=== PATIENT | male | born 1945 | race Caucasian/White ===

== ENCOUNTER → 2017-07-23 | Outpatient (CLI) | payer MEDICARE ==
[2017-07-19 11:07] LABS: BASOPHILS # (AUTO) 0.1 (0.0-0.1); BASOPHILS % 1.1 % (0.0-1.0); EOSINOPHILS # (AUTO) 0.2 (0.0-0.4); EOSINOPHILS % 2.9 % (0.0-6.0); HEMATOCRIT 35.7 % (38.2-49.6); HEMOGLOBIN 12.4 g/dL (14.0-18.0); LYMPHOCYTES # (AUTO) 1.8 (1.0-3.2); LYMPHOCYTES % 27.8 % (18.0-39.1); MEAN CORPUSCULAR HEMOGLOBIN 29.5 pg (28-32); MEAN CORPUSCULAR HGB CONC 34.7 g/dL (31-35); MEAN CORPUSCULAR VOLUME 84.8 fL (81-99); MONOCYTES # (AUTO) 0.4 (0.2-0.8); MONOCYTES % 6.2 % (4.4-11.3); NEUTROPHILS % 61.7 % (38.7-80.0); PLATELET COUNT 224 x10e3/uL (140-360); RED BLOOD COUNT 4.21 x10e6/uL (4.3-5.7); RED CELL DISTRIBUTION WIDTH 13.5 % (11.7-14.4)
[2017-07-19 11:17] LABS: INR 0.94
[2017-07-19 11:26] LABS: ALBUMIN 3.7 g/dL (3.5-5.0); ANION GAP 13.5 mmol/L (8-16); CALCIUM 9.6 mg/dL (8.4-10.2); CHOL/HDL RATIO 5.4 (3.9-4.7); CREATININE, SERUM 2.31 mg/dL (0.72-1.25); POTASSIUM 3.5 mmol/L (3.5-5.1)
[~2017-07-23] VITALS: Ht 182.9 cm; Wt 97.5 kg
[~2017-07-23] MED LIST: CARVEDILOL3.125 MG PO; DIOVAN HCT 3201 EACH PEG; FLONASE NS; HEPARIN SOD/SOD CHLORIDE 2,000 ML ONE; IOPAMIDOL 370 MG/ML 200 ML INFUS..BTL INJ ONE; LEVOCETIRIZINE D5 MG PO; LIDOCAINE HCL 2% LOCAL 20 ML VIAL ONE; LISINOPRIL; MAGNESIUM CARBONATE PO; PANTOPRAZOLE SO40 MG PO; RAPAFLO8 MG PO; SODIUM CHLORIDE 0.9% 1000ML 1,000 ML ONE; SUCRALFATE1 GM PO; TYLENOL # 31 EA; Z.0.DEXILANT60 MG PO; Z.0.PANTOPRAZOLE SO4; Z.0.PLAVIX75 MG PO; Z.0.PRAVASTATIN SOD4 PO; [UNRECOGNIZED DRUG - OTHER] PO
[2017-07-23 08:21] VITALS: BP 148/77
== END ==
LOC: CATH LAB 07:51 → LAB 07:51 → EDSTATUS 09:00
PROVIDERS: ATTEND Internal Medicine Interventional Cardiology
DX: Z01.818 Encounter for other preprocedural examination (principal); I20.8 Other forms of angina pectoris; Z53.8 Procedure and treatment not carried out for other reasons
CPT/HCPCS: 36415; 80053; 80061; 85025; 85610; J2001; J7030; Q9967

== ENCOUNTER → 2017-07-25 | Outpatient (CLI) | payer MEDICARE ==
[~2017-07-25] MED LIST changes: -HEPARIN SOD/SOD CHLORIDE 2,000 ML ONE; -IOPAMIDOL 370 MG/ML 200 ML INFUS..BTL INJ ONE; -LIDOCAINE HCL 2% LOCAL 20 ML VIAL ONE; -SODIUM CHLORIDE 0.9% 1000ML 1,000 ML ONE
--- NOTE | 2017-07-25 10:53 | Diagnostic Imaging Report ---
PROCEDURE:US RETROPERITONEAL ( KIDNEY ). COMPARISON:02/08/2016. INDICATIONS:Malignant Neoplasm Of Kidney TECHNIQUE: Arboleda-scale and color sonographic images of the bilateral kidneys and bladder where obtained in transverse and longitudinal planes. FINDINGS: RIGHT KIDNEY: Status post right nephrectomy. No abnormal soft tissue in the right renal fossa. LEFT KIDNEY: 13.4 cm, cortex 2.3 cm Cysts: None Solid masses: None Stones: None Hydronephrosis: Moderate hydronephrosis. Echogenicity: Normal renal cortical echogenicity. Bladder: Distended with a lobular contour, unchanged. Left ureteral jet is identified. Prostate: Enlarged, measuring 5.4 x 5.5 x 5.8 cm. Estimated volume 90 cc CONCLUSION: Interval development of moderate left hydronephrosis, without discrete obstructive lesion identified. CT abdomen and pelvis without contrast may be of benefit for further evaluation. Prostatomegaly. Status post right nephrectomy. Dictated by: Yazan Toussaint M.D. on 07/25/2017 at 11:01 Electronically approved by: Yazan Toussaint M.D. on 07/25/2017 at 11:01
== END ==
LOC: US 09:57
PROVIDERS: ATTEND Urology
DX: C64.9 Malignant neoplasm of unspecified kidney, except renal pelvis (principal)
CPT/HCPCS: 76770

== ENCOUNTER → 2017-11-15 | Day surgery (SDC) | payer MEDICARE ==
[2017-11-14 11:45] LABS: BASOPHILS # (AUTO) 0.1 (0.0-0.1); BASOPHILS % 0.8 % (0.0-1.0); EOSINOPHILS # (AUTO) 0.2 (0.0-0.4); EOSINOPHILS % 2.7 % (0.0-6.0); LYMPHOCYTES # (AUTO) 1.7 (1.0-3.2); LYMPHOCYTES % 25.2 % (18.0-39.1); MEAN CORPUSCULAR HEMOGLOBIN 28.8 pg (28-32); MEAN CORPUSCULAR HGB CONC 34.4 g/dL (31-35); MEAN CORPUSCULAR VOLUME 83.8 fL (81-99); MONOCYTES # (AUTO) 0.5 (0.2-0.8); MONOCYTES % 7.6 % (4.4-11.3); NEUTROPHILS # (AUTO) 4.2 (2.1-6.9); NEUTROPHILS % 63.4 % (38.7-80.0); PLATELET COUNT 232 x10e3/uL (140-360); RED BLOOD COUNT 3.82 x10e6/uL (4.3-5.7); RED CELL DISTRIBUTION WIDTH 13.9 % (11.7-14.4)
[2017-11-14 12:00] LABS: ALBUMIN 3.9 g/dL (3.5-5.0); ALBUMIN/GLOBULIN RATIO 1.1 (0.8-2.0); ANION GAP 12.3 mmol/L (8-16); CALCIUM 9.8 mg/dL (8.4-10.2); CREATININE, SERUM 3.05 mg/dL (0.72-1.25); POTASSIUM 4.3 mmol/L (3.5-5.1)
[~2017-11-15] VITALS: Ht 182.9 cm; Wt 95.3 kg
[~2017-11-15] MED LIST changes: +AMLODIPINE BESYL5 MG PO; +CARVEDILOL12.5 MG PO; +FENTANYL CITRATE/PF 100MCG/2 ML INJ ONE; +HEPARIN SOD/SOD CHLORIDE 2,000 ML ONE; +IOPAMIDOL 300MG/ML 100 ML INFUS..BTL IV ONE; +LIDOCAINE HCL 2% LOCAL 20 ML VIAL ONE; +MIDAZOLAM HCL 2 MG/2 ML VIAL ONE; +SODIUM CHLORIDE 0.9% 1000ML 1,000 ML ONE
--- OUTSIDE RECORDS SUMMARY | 2017-11-15 09:33 | XMS REPORT ---
Author Author [facility] Address Unknown Phone Unavailable Care Team Providers Care Bag Inspector Name Role Phone LUDIVINA THORNTON Unavailable Unavailable Problems This patient has no known problems. Allergies, Adverse Reactions, Alerts This patient has no known allergies or adverse reactions. Medications This patient has no known medications. Results Test Description Test Time Test Comments Text Results Atomic Results Result Comments CHEST 2 VIEWS [place] [address] Patient Name: KALIE HERNANDEZ MR #: [id number] : 1945 Age/Sex: 72/M Req # : [id number] Adm Physician: Ordered by: LUDIVINA THORNTON MD Report #: [id number] Location: OR Room/Bed: Procedure: [id number] DX/CHEST 2 VIEWS Exam Date: Exam Time: REPORT STATUS: Signed PROCEDURE: X-RAY CHEST, TWO VIEWS COMPARISON: 2015. INDICATIONS: PREOPERATIVE CHEST XRAY FOR BIOPSY FINDINGS: Lungs are well-inflated. No focal airspace consolidation, pleural effusion, or pneumothorax. Cardiomediastinal contour and pulmonary vasculature are stable and within normal limits. No acute osseous abnormality. Multilevel degenerative disc changes of the thoracic spine.. CONCLUSION: No acute cardiopulmonary abnormality. Dictated by: Lucretia Jean M.D. on 11/04/2017 at 12:57 Electronically approved by: Lucretia Jean M.D. on at 12:57 Dictated By: LUCRETIA JEAN MD [id number] Transcribed By: JOSE MARIA on 11/04/17 1257 COPY TO: LUDIVINA THORNTON MD US RENAL RETROPERITONEAL COMP [place] [address] Patient Name: KALIE HERNANDEZ MR #: [id number] : 1945 Age/Sex: 72/M Req #: [id number] Adm Physician: Ordered by: LUDIVINA THORNTON MD Report #: [id number] Location: Room/Bed: Procedure: [id number] US/US RENAL RETROPERITONEAL COMP Exam Date: Exam Time: REPORT STATUS: Signed PROCEDURE: US RETROPERITONEAL ( KIDNEY ). COMPARISON: 02/08/2016. INDICATIONS: Malignant Neoplasm Of Kidney TECHNIQUE: Arboleda-scale and color sonographic images of the bilateral kidneys and bladder where obtained in transverse and longitudinal planes. FINDINGS: RIGHT KIDNEY: Status post right nephrectomy. No abnormal soft tissue in the right renal fossa. LEFT KIDNEY: 13.4 cm, cortex 2.3 cm Cysts: None Solid masses: None Stones : None Hydronephrosis: Moderate hydronephrosis. Echogenicity: Normal renal cortical echogenicity. Bladder: Distended with a lobular contour, unchanged. Left ureteral jet is identified. Prostate: Enlarged, measuring 5.4 x 5.5 x 5.8 cm. Estimated volume 90 cc CONCLUSION: Interval development of moderate left hydronephrosis, without discrete obstructive lesion identified. CT abdomen and pelvis without contrast may be of benefit for further evaluation. Prostatomegaly. Status post right nephrectomy. Dictated by: Lucretia Jean M.D. on 07/25/2017 at 11:01 Electronically approved by: Lucretia Jean M.D. on 07/25/2017 at 11:01 Dictated By: LUCRETIA JEAN MD 1101 Transcribed By: JOSE MARIA on 07/25/17 1101 COPY TO : LUDIVINA THORNTON MD
--- NOTE | 2017-11-15 14:24 | Operative Report ---
DATE OF PROCEDURE: November 15, 2017 INDICATIONS: Coronary artery disease and unstable angina. PROCEDURES PERFORMED 1. Left heart catheterization. 2. Selective coronary angiography. 3. Deployment of right groin Perclose. COMPLICATIONS: None. RECOMMENDATIONS: Medical therapy. Patient is cleared for urological surgery once and if renal function improves consider circumflex intervention. Right groin was anesthetized using lidocaine. A 6-Beninese sheath was placed. Coronary angiography demonstrate 50% to 60% distal left main stenosis. Stent in the left anterior descending artery was patent. This is a small vessel. Circumflex was a small vessel, 70% stenosis in midcircumflex. Right coronary artery was dominant with a large stent in its midportion with mild in-stent restenosis 10% to 20%. Distal left anterior descending artery with diffuse 30% to 50% stenosis. Right groin repaired using Perclose. Patient discharged home same day. Total contrast used 25 mL. Job#: [id number] JESSICA
[2017-11-15 14:30] VITALS: BP 155/78
[2017-11-15 14:45] VITALS: BP 152/79
[2017-11-15 15:00] VITALS: BP 162/84
[2017-11-15 15:15] VITALS: BP 158/79
== END | disposition home or self-care (01) ==
LOC: CATH LAB 09:31 → EDSTATUS 13:00
PROVIDERS: ATTEND Internal Medicine Interventional Cardiology
DX: I25.110 Atherosclerotic heart disease of native coronary artery with unstable angina pectoris (principal); Z95.5 Presence of coronary angioplasty implant and graft; T82.855A Stenosis of coronary artery stent, initial encounter; Y83.2 Surgical operation with anastomosis, bypass or graft as the cause of abnormal reaction of the patient, or of later complication, without mention of misadventure at the time of the procedure; R94.39 Abnormal result of other cardiovascular function study; G47.33 Obstructive sleep apnea (adult) (pediatric); Z85.528 Personal history of other malignant neoplasm of kidney; Z90.5 Acquired absence of kidney; Z88.1 Allergy status to other antibiotic agents
CPT/HCPCS: 36415; 77002; 80053; 85025; 93458; C1725; J2001; J2250; J7030; Q9967; 36140

== ENCOUNTER → 2017-12-17 | Day surgery (SDC) | payer MEDICARE ==
[~2017-12-17] MED LIST changes: +BELLADONNA/OPIUM 60 MG SUPP PR ONE; +CEFAZOLIN SOD 1 GM VIAL ONE; +DEXAMETHASONE SOD PHOS INJ 4 MG/ML VIAL ONE; -HEPARIN SOD/SOD CHLORIDE 2,000 ML ONE; -IOPAMIDOL 300MG/ML 100 ML INFUS..BTL IV ONE; +IOPAMIDOL 610MG/1ML 300 MG/ML VIAL IV ONE; -LIDOCAINE HCL 2% LOCAL 20 ML VIAL ONE; +LIDOCAINE HCL 2% LOCAL INJ 5 ML SDV VIAL INJ ONE; +ONDANSETRON HCL INJ 2 MG/ML VIAL ONE; +PROPOFOL IV EMULSION 10 MG/ML 20 ML VIAL ONE; +SEVOFLURANE INHAL SOLN 250 ML PEN BTL ONE; -SODIUM CHLORIDE 0.9% 1000ML 1,000 ML ONE; +TOBRAMYCIN 40 MG/ML 2ML VIAL ONE
--- NOTE | 2017-12-17 19:39 | Operative Report ---
DATE OF PROCEDURE: December 17, 2017 PREOPERATIVE DIAGNOSES 1. Elevated prostatic specific antigen. 2. Solitary left kidney. 3. Renal failure. 4. Urethral stricture. POSTOPERATIVE DIAGNOSIS: Left hydronephrosis and hydroureter. OPERATIONS PERFORMED 1. Cystoscopy and urethral dilation. 2. Left retrograde pyelogram. 3. Right retrograde ureterogram. 4. Placement of double J-stent, 7-Anguillan, 26 cm long to the left side. 5. Interpretation of x-ray. Radiologist not present. 6. Supervision of fluoroscopy. Radiologist not present. 7. Ultrasound of the prostate. 8. Ultrasound-guided needle biopsy of the prostate. IT CONSULTANT: None. ANESTHESIA: General. CLINICAL INDICATION NOTE: This is a 72-year-old patient that had right nephrectomy for cancer in the past. He does have a urethral stricture, renal failure and elevated PSA. He was brought here for assessment of the lower and upper tract and biopsy of the prostate. Procedure was discussed. Patient was advised of potential benefit and complications and accepted. DESCRIPTION OF PROCEDURE AND FINDINGS: After a proper level of anesthesia was achieved, the patient was placed in lithotomy position and prepped and draped in the usual sterile fashion. The distal urethra is narrow and dilated to 28-Anguillan. Following this, cystoscopy was done. A very large blocking prostate is present. The bladder itself is extensively trabeculated. There is a bladder diverticulum on the left side. Both ureteral orifices were identified. Left retrograde pyelogram was done demonstrating configurated ureter with significant hydronephrosis. It was possible to negotiate a wire up into the renal pelvis, and a double J-stent was placed, 7-Anguillan, 26 cm long. Right retrograde ureterogram was done. The ureter is unremarkable. No tumors are present. It is free up to the transection where the nephrectomy was done. The bladder was then fill up with irrigation fluid. The prostate ultrasound was done after irrigating of the rectum with diluted Betadine solution. Prostate was found to be about 100 g. Ultrasound-guided biopsy of the prostate was done. Six coils were obtained from each side, 3 at the base, 3 at the apex and 3 in the middle. A Walker catheter, 22-Anguillan, 30 mL was placed in the bladder. Patient was transferred in satisfactory condition to the recovery postop. Antibiotics and pain pills were given. He will be followed in 2 weeks in the office. Walker should be removed in about 5 day. Job#: [id number] RI
== END | disposition home or self-care (01) ==
LOC: OR 07:42
PROVIDERS: ATTEND Urology
DX: R97.20 Elevated prostate specific antigen [PSA] (principal); N13.30 Unspecified hydronephrosis; N41.0 Acute prostatitis; N41.1 Chronic prostatitis; N19 Unspecified kidney failure; N35.9 Urethral stricture, unspecified; N32.89 Other specified disorders of bladder; Z90.5 Acquired absence of kidney; Z85.528 Personal history of other malignant neoplasm of kidney; K21.9 Gastro-esophageal reflux disease without esophagitis; K44.9 Diaphragmatic hernia without obstruction or gangrene; I69.898 Other sequelae of other cerebrovascular disease; R53.1 Weakness; G47.33 Obstructive sleep apnea (adult) (pediatric); I25.10 Atherosclerotic heart disease of native coronary artery without angina pectoris; I10 Essential (primary) hypertension; E78.5 Hyperlipidemia, unspecified; Z85.828 Personal history of other malignant neoplasm of skin; Z95.5 Presence of coronary angioplasty implant and graft
CPT/HCPCS: 52332; 55700; 74420; 76872; 76942; 88305; C2617; J1100; J2001; J2250; J2405; J3260; Q9967; J0690

== ENCOUNTER 2017-12-31 19:58 | Inpatient (IN) | payer MEDICARE ==
[~2017-12-31] VITALS: Ht 183.6 cm; Wt 95.7 kg
[~2017-12-31 19:58] MED LIST changes: -BELLADONNA/OPIUM 60 MG SUPP PR ONE; -CEFAZOLIN SOD 1 GM VIAL ONE; -DEXAMETHASONE SOD PHOS INJ 4 MG/ML VIAL ONE; -FENTANYL CITRATE/PF 100MCG/2 ML INJ ONE; -IOPAMIDOL 610MG/1ML 300 MG/ML VIAL IV ONE; -LIDOCAINE HCL 2% LOCAL INJ 5 ML SDV VIAL INJ ONE; -MIDAZOLAM HCL 2 MG/2 ML VIAL ONE; -ONDANSETRON HCL INJ 2 MG/ML VIAL ONE; -PROPOFOL IV EMULSION 10 MG/ML 20 ML VIAL ONE; -SEVOFLURANE INHAL SOLN 250 ML PEN BTL ONE; -TOBRAMYCIN 40 MG/ML 2ML VIAL ONE
[2017-12-31 21:06] LABS: BASOPHILS # (AUTO) 0.1 (0.0-0.1); BASOPHILS % 0.9 % (0.0-1.0); EOSINOPHILS # (AUTO) 0.3 (0.0-0.4); EOSINOPHILS % 3.1 % (0.0-6.0); HEMATOCRIT 29.4 % (38.2-49.6); HEMOGLOBIN 10.3 g/dL (14.0-18.0); LYMPHOCYTES # (AUTO) 1.3 (1.0-3.2); LYMPHOCYTES % 14.6 % (18.0-39.1); MEAN CORPUSCULAR HEMOGLOBIN 28.1 pg (28-32); MEAN CORPUSCULAR VOLUME 80.1 fL (81-99); MONOCYTES # (AUTO) 0.7 (0.2-0.8); MONOCYTES % 7.9 % (4.4-11.3); NEUTROPHILS # (AUTO) 6.7 (2.1-6.9); NEUTROPHILS % 73.2 % (38.7-80.0); PLATELET COUNT 298 x10e3/uL (140-360); RED BLOOD COUNT 3.67 x10e6/uL (4.3-5.7); RED CELL DISTRIBUTION WIDTH 13.2 % (11.7-14.4)
[2017-12-31 21:14] LABS: INR 1.08; PROTHROMBIN TIME 13.2 seconds (11.9-14.5)
[2017-12-31 21:15] LABS: PARTIAL THROMBOPLASTIN TIME 35.7 seconds (23.8-35.5)
[2017-12-31 21:22] LABS: ALBUMIN 3.7 g/dL (3.5-5.0); ALBUMIN/GLOBULIN RATIO 1.1 (0.8-2.0); ANION GAP 14.9 mmol/L (8-16); CALCIUM 9.1 mg/dL (8.4-10.2); CREATININE, SERUM 3.8 mg/dL (0.72-1.25); MAGNESIUM 2.2 MG/DL (1.3-2.1); POTASSIUM 3.9 mmol/L (3.5-5.1)
[2017-12-31 21:29] LABS: CREATINE KINASE MB 4.3 ng/mL (0-5.0)
[2017-12-31] MEDS ORDERED: LIDOCAINE JELLY 2% 10ML URO-JET TOP ONE (21:30)
[2017-12-31 22:17] LABS: CLARITY,URINE SL CLOUDY (CLEAR); COLOR,URINE STRAW (YELLOW)
--- NOTE | 2017-12-31 22:17 | Diagnostic Imaging Report ---
EXAM: CT ABDOMEN AND PELVIS without IV CONTRAST INDICATION: Unable to urinate COMPARISON: None TECHNIQUE: The abdomen and pelvis were scanned using a multidetector helical scanner. Coronal and sagittal reformations were obtained. Renal stone protocol performed. IV Contrast: None Oral Contrast: None CTDIvol has been reviewed. It is below the limits set by the Radiation Protocol Committee (RPC). FINDINGS: LOWER THORAX: No consolidations LIVER: No masses BILIARY: Normal gallbladder. No ductal dilation. SPLEEN: No masses PANCREAS: No masses ADRENALS: No nodules RIGHT KIDNEY: Surgical changes of nephrectomy. No masses in the nephrectomy bed. LEFT KIDNEY: There is an internal nephroureteral stent which is malpositioned with its proximal end reconstituted in the mid ureter and its distal end within the bladder. There is severe left hydroureteronephrosis secondary to massive distention of the bladder. No nephroureterolithiasis. Mild left perinephric fat stranding. GI TRACT: No wall thickening or obstruction. Normal appendix. VESSELS: Moderate atherosclerotic changes of the abdominal aorta without aneurysm. PERITONEUM/RETROPERITONEUM: No free air or fluid LYMPH NODES: No lymphadenopathy REPRODUCTIVE ORGANS: Enlargement of the prostate with protrusion into the bladder base. Prostate measures at least 8 cm in transverse diameter. BLADDER: Massive enlargement of the bladder with multiple trabeculations measuring up to 23 x 16 x 13 cm. SOFT TISSUES: Small fat-containing left inguinal hernia. BONES: No suspicious bone lesions. IMPRESSION: 1. Massive distention of the bladder up to 23 cm in diameter likely secondary to enlarged prostate. 2. Severe left hydroureteronephrosis secondary to bladder distention. Additionally, the internal nephroureteral stent is malpositioned with its proximal end in the mid ureter. Signed by: Dr. Karissa Rubin M.D. on 12/31/2017 10:14 PM
[2017-12-31 22:18] LABS: BILIRUBIN,URINE NEGATIVE (NEGATIVE); KETONES,URINE NEGATIVE (NEGATIVE); LEUKOCYTE ESTERASE ,URINE 1+ (NEGATIVE); NITRITE,URINE NEGATIVE (NEGATIVE); PROTEIN,URINE DIPSTICK 2+ (NEGATIVE); URINE UROBILINOGEN 0.2 mg/dL (0.2 - 1)
[2017-12-31 22:20] LABS: RBC,URINE 21-50 /HPF (0-5)
[2017-12-31 22:21] LABS: AMORPHOUS SEDIMENT,URINE MANY (FEW); BACTERIA,URINE FEW /HPF; EPITHELIAL CELLS,URINE FEW /LPF; TRANSITIONAL EPI CELLS,URINE MODERATE
[2017-12-31] MEDS ORDERED: LEVOFLOXACIN 250MG/D5W 50ML 50 ML IV STA (22:35)
[2017-12-31] MEDS ORDERED: MORPHINE SULFATE 2 MG/ML SYR IV PRN (23:00)
[2017-12-31] MEDS ORDERED: ONDANSETRON HCL INJ 2 MG/ML VIAL IV PRN (23:00)
[2018-01-01] VITALS (7 sets, daily range): BP systolic 124–167; BP diastolic 60–77
[2018-01-01] MEDS: SODIUM CHLORIDE 0.9% 1000ML 1,000 ML IV SCH ×2 (01:11→12:12)
[2018-01-01 06:25] LABS: BASOPHILS # (AUTO) 0.1 (0.0-0.1); BASOPHILS % 0.9 % (0.0-1.0); EOSINOPHILS # (AUTO) 0.3 (0.0-0.4); EOSINOPHILS % 3.5 % (0.0-6.0); HEMATOCRIT 27.8 % (38.2-49.6); HEMOGLOBIN 9.6 g/dL (14.0-18.0); LYMPHOCYTES # (AUTO) 1.5 (1.0-3.2); LYMPHOCYTES % 19.8 % (18.0-39.1); MEAN CORPUSCULAR HEMOGLOBIN 28.5 pg (28-32); MEAN CORPUSCULAR HGB CONC 34.5 g/dL (31-35); MEAN CORPUSCULAR VOLUME 82.5 fL (81-99); MONOCYTES # (AUTO) 0.7 (0.2-0.8); MONOCYTES % 8.7 % (4.4-11.3); NEUTROPHILS # (AUTO) 5.1 (2.1-6.9); NEUTROPHILS % 66.6 % (38.7-80.0); PLATELET COUNT 278 x10e3/uL (140-360); RED BLOOD COUNT 3.37 x10e6/uL (4.3-5.7); RED CELL DISTRIBUTION WIDTH 13.3 % (11.7-14.4)
[2018-01-01 06:54] LABS: CREATINE KINASE MB 2.4 ng/mL (0-5.0)
[2018-01-01 06:57] LABS: ALBUMIN 3.1 g/dL (3.5-5.0); ALBUMIN/GLOBULIN RATIO 1.1 (0.8-2.0); ANION GAP 12.9 mmol/L (8-16); CALCIUM 8.9 mg/dL (8.4-10.2); CREATININE, SERUM 3.55 mg/dL (0.72-1.25); POTASSIUM 3.9 mmol/L (3.5-5.1)
[2018-01-01] MEDS: PANTOPRAZOLE 40 MG 10ML VIAL IV SCH (08:35)
--- NOTE | 2018-01-01 09:13 | Diagnostic Imaging Report ---
PROCEDURE:ABDOMEN-1VIEW (KUB) TECHNIQUE:Supine AP abdomen totaling 2 radiographs INDICATION:Stent placement COMPARISON:[facility], CT, CT ABDOMEN/PELVIS WO, 12/31/2017, 21:14. FINDINGS: See conclusion. CONCLUSION: 1. Left double-J ureteral stent without evidence of encrustation or pericatheter stone. The proximal loop of the stent is migrated distally, into the proximal ureter. The distal loop overlies the urinary bladder. 2. Right nephrectomy. 3. Normal bowel gas pattern. Dictated by: Romario Flood M.D. on 01/01/2018 at 9:16 Electronically approved by: Romario Flood M.D. on 01/01/2018 at 9:16
[2018-01-01] MEDS ORDERED: IOPAMIDOL 610MG/1ML 300 MG/ML VIAL IV ONE (13:58)
[2018-01-01] MEDS ORDERED: BELLADONNA/OPIUM 30 MG SUPP RC ONE (14:23)
--- NOTE | 2018-01-01 16:42 | Consultation ---
DATE OF CONSULTATION: January 01, 2018 REQUESTING PHYSICIAN: Dr. Garibay REASON FOR CONSULTATION: Cardiac clearance. HISTORY OF PRESENT ILLNESS: This is a 72-year-old man with history of coronary artery disease with prior LAD and RCA stents and known 70% stenosis of the left circumflex, sleep apnea, venous insufficiency status post venous ablation, hypertension, hyperlipidemia and poorly controlled diabetes who presented with complaints of suprapubic pain and hematuria. The patient reports he had undergone prostate biopsy with ureteral stent placement last Saturday. He reports his Walker was removed at that time. He initially did well however he then began to note decreased urination and hematuria. He presented to the ER for evaluation. In the ER he was found to have acute kidney injury with creatinine of 3.8 as well as massive distention of the bladder and severe large hydroureteronephrosis secondary to bladder distention with a malpositioned nephroureteral stent with its proximal end in the mid ureter on CT abdomen and pelvis. He was admitted for further evaluation and treatment. The patient denies any symptoms. He denies any chest pain, shortness of breath, palpitations, orthopnea, PND, lightheadedness or syncope. REVIEW OF SYSTEMS: Negative except as per HPI. PAST MEDICAL HISTORY 1. Coronary artery disease status post LAD and RCA stents with 70% stenosis in the circumflex. 2. Hypertension. 3. Sleep apnea on CPAP. 4. Venous insufficiency status post ablation. PAST SURGICAL HISTORY 1. Prostate biopsy. 2. Nephrectomy. ALLERGIES: PLEASE SEE EMR. MEDICATIONS: Please see medication list. SOCIAL HISTORY: No tobacco, alcohol or drug use. FAMILY HISTORY: Noncontributory. PHYSICAL EXAMINATION VITAL SIGNS: Temperature 97.3 degrees, pulse 50, respiratory rate 20, blood pressure 140/73, oxygen saturation 98% on room air. GENERAL: Awake, alert. No acute distress. Well-developed, well-nourished man. HEENT: Normocephalic, atraumatic. Pupils equal. No scleral icterus. NECK: Supple. No thyromegaly or cervical lymphadenopathy. No carotid bruits. LUNGS: Clear to auscultation bilaterally. No wheezes or crackles. CARDIOVASCULAR: Normal rate, regular rhythm. No murmur. Normal S1, S2. ABDOMEN: Soft, nontender. EXTREMITIES: No edema. NEURO: Nonfocal exam. LABS: Sodium 141, potassium 3.9, chloride 109, CO2 23, BUN 45, creatinine 3.55. WBC 7.7, hemoglobin 9.6, hematocrit 27.8, platelets 278. EKG: Second-degree AV block type 1. IMPRESSION 1. Urinary retention with severe left hydroureteronephrosis and malpositioned left nephroureteral stent. 2. Abnormal urinalysis. 3. Second-degree type 1 AV block. 4. Coronary artery disease status post RCA and LAD stents with 70% stenosis in the circumflex. 5. Hypertension. 6. Sleep apnea. RECOMMENDATIONS: Patient may proceed to cystoscope without further cardiac evaluation. Please monitor patient on telemetry. Increase amlodipine and decrease carvedilol given bradycardia. Continue current cardiac medications otherwise. Thank you for this consult. We will continue to follow. Job#: [id number] BELLA
[2018-01-01 18:25] LABS: CREATINE KINASE MB 1.9 ng/mL (0-5.0)
[2018-01-01] MEDS ORDERED: LIDOCAINE HCL 2% LOCAL INJ 5 ML SDV VIAL INJ ONE (19:03)
[2018-01-01] MEDS ORDERED: SEVOFLURANE INHAL SOLN 250 ML PEN BTL ONE (19:03)
[2018-01-01] MEDS ORDERED: ATROPINE SULFATE 1 MG/ML VIAL ONE (19:03)
[2018-01-01] MEDS ORDERED: DEXAMETHASONE SOD PHOS INJ 4 MG/ML VIAL ONE (19:03)
[2018-01-01] MEDS ORDERED: ONDANSETRON HCL INJ 2 MG/ML VIAL ONE (19:03)
[2018-01-01] MEDS ORDERED: PROPOFOL IV EMULSION 10 MG/ML 20 ML VIAL ONE (19:03)
[2018-01-01] MEDS ORDERED: GLYCOPYRROLATE INJ 1MG/ 5 ML SYR ONE (19:03)
[2018-01-01] MEDS ORDERED: FENTANYL CITRATE/PF 100MCG/2 ML INJ ONE (20:03)
[2018-01-01] MEDS ORDERED: MIDAZOLAM HCL 2 MG/2 ML VIAL ONE (20:03)
--- NOTE | 2018-01-01 20:38 | Consultation ---
DATE OF CONSULTATION: January 01, 2018 SERVICE: Urology. ATTENDING PHYSICIAN: Dr. Alex Garibay HISTORY OF PRESENT ILLNESS: This is a 72-year-old patient who is well known to me from past urological problems. He did have an elevated PSA recently. He had biopsy of the prostate that was negative for malignancy. The patient has significant BPH. He was admitted to the hospital for acute urinary retention and gross hematuria. This was not related to the prostate biopsy that was done in the past. At the same time, a CT scan of the abdomen and pelvis that was done revealed the double-J stent that he had placed properly was displaced down into the ureter. Of note, he had significant hydronephrosis and hydroureter as well as renal failure. Presently, he does have a Walker catheter in place, and urine is still somewhat bloody. PAST MEDICAL HISTORY: Significant for: 1. Coronary artery disease status post LAD and RCA stents with 70% stenosis. 2. Hypertension. 3. Sleep apnea on CPAP. 4. Venous insufficiency status post ablation. PAST SURGICAL HISTORY 1. Right nephrectomy. 2. Prostate biopsy. 3. Placement of double-J stent on the left side. ALLERGIES TO MEDICATIONS: SEE MAR. MEDICATIONS: See MAR. SOCIAL HISTORY: No use of tobacco, illicit drugs or alcohol. FAMILY HISTORY: Noncontributory. REVIEW OF SYSTEMS: Twelve systems reviewed. Except for what is related to the current problem and frequency of urination, all others were negative. PHYSICAL EXAMINATION GENERAL: The patient is alert and oriented times 3. VITALS: Blood pressure 140/75, pulse now 50, temperature 97.2, respirations 18. HEAD: Symmetric. EYES: Normal movement. NECK: No JVD or mass. CHEST: Clear. HEART: Regular. ABDOMEN: Soft. : External genitalia unremarkable. Walker catheter in place. Large left hydrocele. Very large prostate on rectal. LABORATORY DATA: Reviewed. Hemoglobin 10.3, white count 9.17. Electrolytes: Sodium 135, potassium 3.9, bicarb 21, chloride 103, creatinine 3.8, BUN 45. Urinalysis: Urine bloody. White blood cells 11 to 20. Specific gravity 1.005. CT scan of the abdomen and pelvis suggests displacement of the double-J stent down below the kidney. Patient does have hydronephrosis, which is quite severe. The bladder contained large volume of fluid with a very large prostate. IMPRESSION 1. Gross hematuria. 2. Urinary retention. 3. [id number] renal failure. 4. Solitary left kidney. 5. Status post right nephrectomy. 6. BPH with obstruction. 7. Coronary artery disease and bradycardia. 8. Large left hydrocele. 9. Displaced double-J stent from the left side. PLAN: The patient needs a surgical procedure after cardiac clearance to evacuate the blood clots from the bladder and try to re-establish the double-J stent on the left side. Thank you. I will follow with you. Job#: [id number]
--- NOTE | 2018-01-01 21:02 | Operative Report ---
DATE OF PROCEDURE: January 01, 2018 SERVICE: Urology. PREOPERATIVE DIAGNOSES 1. Gross hematuria. 2. Urinary retention. 3. Displaced double-J stent on the left side. 4. Left hydronephrosis and hydroureter. POSTOPERATIVE DIAGNOSES 1. Gross hematuria. 2. Urinary retention. 3. Displaced double-J stent on the left side. 4. Left hydronephrosis and hydroureter. 5. Dilated distal part of the left ureter, convoluted upper ureter and hydronephrosis. OPERATION PERFORMED 1. Cystoscopy and evacuation of multiple clots in the bladder. 2. Fulguration of bleeding points. 3. Removal of the double-J stent from the left side. 4. Retrograde. 5. Attempt to place a double-J stent. 6. Interpretation of x-ray, radiologist not present. 7. Supervision of fluoroscopy. LEATHER PATCHER: None. ANESTHESIA: General. CLINICAL INDICATIONS: This is a 72-year-old patient who is well known to me. He has a left hydronephrosis and hydroureter. He presented to the hospital with gross hematuria and urinary retention. He has a Walker catheter in place. The patient did have in the past placement of a double-J stent, and it seems that it may have migrated down. The patient was brought with attempts to place a double-J stent if possible and evacuate the bladder. DESCRIPTION OF PROCEDURE AND FINDINGS: After proper level of anesthesia was achieved, the patient was placed in the lithotomy position, prepped and draped in a sterile fashion. The urethra was inspected and was unremarkable, except for minimal narrowing at the tip. The outlet is obstructed by a very large prostate. The bladder itself is quite trabeculated. Blood clots were present, and all of them were evacuated. The double-J stent appeared to be protruding along from the ureteral orifice. It was attempted initially to place an open-ended catheter by the double-J stent. However, it did not ascend due to the dilated distal ureter like a pocket. Anything that was placed through that orifice was coiled in that area. Therefore, the double-J stent was removed. It was possible to pass a Glidewire up into the collecting system. However, it kept coiling in the distal ureter. It was possible even to place an open-ended catheter; however, again, it could never be advanced up beyond the upper ureter. After multiple and prolonged attempts, it was elected to discontinue the procedure. We will ask interventional radiology to put a percutaneous nephrostomy and a stent down in an antegrade fashion. A 24, 3-way Walker catheter was inserted and connected to continuous irrigation with saline. The patient was transferred in satisfactory condition to the recovery room. He will be followed. Job#: [id number]
[2018-01-01] MEDS ORDERED: LEVOFLOXACIN 500MG/D5W 100ML 100 ML IV SCH (23:00)
[2018-01-02] VITALS (9 sets, daily range): BP systolic 128–170; BP diastolic 56–77
[2018-01-02] MEDS: LEVOFLOXACIN 250MG/D5W 50ML 50 ML IV SCH ×2 (00:36→23:28)
[2018-01-02] MEDS: SODIUM CHLORIDE 0.9% 1000ML 1,000 ML IV SCH ×2 (04:40→13:27)
[2018-01-02 06:33] LABS: BASOPHILS % 0.4 % (0.0-1.0); EOSINOPHILS # (AUTO) 0.1 (0.0-0.4); EOSINOPHILS % 0.5 % (0.0-6.0); HEMATOCRIT 26.2 % (38.2-49.6); HEMOGLOBIN 8.9 g/dL (14.0-18.0); LYMPHOCYTES # (AUTO) 1.1 (1.0-3.2); LYMPHOCYTES % 10.7 % (18.0-39.1); MEAN CORPUSCULAR HEMOGLOBIN 28.4 pg (28-32); MEAN CORPUSCULAR VOLUME 83.7 fL (81-99); MONOCYTES # (AUTO) 0.6 (0.2-0.8); MONOCYTES % 5.2 % (4.4-11.3); NEUTROPHILS # (AUTO) 8.8 (2.1-6.9); NEUTROPHILS % 82.9 % (38.7-80.0); PLATELET COUNT 274 x10e3/uL (140-360); RED BLOOD COUNT 3.13 x10e6/uL (4.3-5.7); RED CELL DISTRIBUTION WIDTH 13.2 % (11.7-14.4)
[2018-01-02 07:07] LABS: ALBUMIN 2.9 g/dL (3.5-5.0); ANION GAP 12.5 mmol/L (8-16); CALCIUM 8.6 mg/dL (8.4-10.2); CREATININE, SERUM 3.09 mg/dL (0.72-1.25); POTASSIUM 4.5 mmol/L (3.5-5.1)
[2018-01-02] MEDS: AMLODIPINE BESYLATE 10 MG TAB PO SCH (07:53)
[2018-01-02] MEDS: PANTOPRAZOLE 40 MG 10ML VIAL IV SCH (07:53)
[2018-01-02] MEDS ORDERED: MIDAZOLAM HCL 2 MG/2 ML VIAL ONE (10:33)
[2018-01-02] MEDS ORDERED: FENTANYL CITRATE/PF 100MCG/2 ML INJ ONE (10:33)
[2018-01-02] MEDS ORDERED: LIDOCAINE HCL 2% LOCAL 20 ML VIAL ONE (10:33)
[2018-01-02] MEDS ORDERED: SODIUM CHLORIDE 0.9% 500ML 1,000 ML ONE (10:34)
--- NOTE | 2018-01-02 12:42 | Diagnostic Imaging Report ---
Left ureteral stent and nephrostomy placement 01/02/2018 Pre-Procedure Diagnosis: Left ureteral obstruction. Single kidney. Prostatomegaly with bladder outlet obstruction. Post-procedure Diagnosis: Left ureteral obstruction. Single kidney. Prostatomegaly with bladder outlet obstruction. Power Transformer Assembler: Danette Flood Business Process Coordinator: None Sedation: Moderate sedation was provided with intravenous fentanyl and Versed. Heart rate, rhythm and oxygen saturation were monitored in real-time by a dedicated interventional radiology nurse under my direct supervision. Blood pressure was monitored in 5 minute increments. 1% lidocaine was used for local anesthesia. Total sedation time: 30 minutes Radiation Dose: 1360.1 cGycm2 (Dose Area Product) Fluoroscopy time: 4.2 minutes Estimate blood loss: 10 mL Blood administered: None Complications: None Implants/Grafts: None Specimen: None Procedure: Informed consent was obtained and the patient placed prone. A timeout was performed. Preliminary ultrasound of the left kidney was performed. The left back was prepped and draped in standard sterile fashion. Using real-time ultrasound guidance a 21-gauge needle was advanced into a mid pole posterior left calyx. An image was stored in the electronic medical record. The needle was exchanged for a 6-Montserratian transition sheath and an antegrade nephrostogram performed (see findings below). The collecting system was decompressed. The tortuous ureter was traversed with a 65 cm KMP catheter and intra-bladder positioning confirmed with contrast injection. Subsequently, the KMP catheter was exchanged for a 26 cm 7-Montserratian Olympus soft curl ureteral stent. Loops were formed in the urinary bladder and renal pelvis. Limited antegrade nephrostogram was repeated. Given limited traversal of contrast across the indwelling ureteral stent, as well as a moderate-sized hematoma within the renal pelvis, I elected to leave an 8.5-Montserratian Downey-Tyler nephrostomy. The nephrostomy was connected to gravity drainage, sutured to the skin and a sterile dressing applied. Findings: 1. Antegrade nephrostomy demonstrated severe hydronephrosis, with a markedly dilated and tortuous left ureter in keeping with chronic dilation. The ureter was kinked/obstructed in several segments, notably at the proximal and distal segments. 2. Limited nephrostogram after ureteral stent placement demonstrated a moderate-sized hematoma in the renal pelvis. The proximal ureteral kink was straightened by the indwelling catheter, though the distal kink appeared unchanged. There was notable contrast stagnation in the very dilated ureter. Impression: 1. Successful left 7-Montserratian 26 cm double-J ureteral stent placement. 2. Successful left 8.5-Montserratian Downey-Tyler nephrostomy placement. Plan/recommendations: The nephrostomy was left as a safety access given extreme tortuosity and kinking of the ureter. Drainage across the double J stent was questionable at completion nephrostogram, possibly secondary to persistent kinking of the ureter despite the presence of the stent. I recommend capping the nephrostomy after resolution of hematuria. This will also allow monitoring of renal function to ensure adequate double-J patency in the setting of a single kidney. The nephrostomy can then be removed for complete internalization. This report was generated with voice-recognition technology. Errors in inner tube tuber machine operator can occur. Please interpret accordingly and contact a radiologist if there are any questions regarding the report. Signed by: Dr. Romario Flood M.D. on 01/06/2018 7:21 AM
--- NOTE | 2018-01-02 12:42 | Diagnostic Imaging Report ---
Left ureteral stent and nephrostomy placement 01/02/2018 Pre-Procedure Diagnosis: Left ureteral obstruction. Single kidney. Prostatomegaly with bladder outlet obstruction. Post-procedure Diagnosis: Left ureteral obstruction. Single kidney. Prostatomegaly with bladder outlet obstruction. Home Visitor [employer]: Danette Flood Engraving Plate Maker: None Sedation: Moderate sedation was provided with intravenous fentanyl and Versed. Heart rate, rhythm and oxygen saturation were monitored in real-time by a dedicated interventional radiology nurse under my direct supervision. Blood pressure was monitored in 5 minute increments. 1% lidocaine was used for local anesthesia. Total sedation time: 30 minutes Radiation Dose: 1360.1 cGycm2 (Dose Area Product) Fluoroscopy time: 4.2 minutes Estimate blood loss: 10 mL Blood administered: None Complications: None Implants/Grafts: None Specimen: None Procedure: Informed consent was obtained and the patient placed prone. A timeout was performed. Preliminary ultrasound of the left kidney was performed. The left back was prepped and draped in standard sterile fashion. Using real-time ultrasound guidance a 21-gauge needle was advanced into a mid pole posterior left calyx. An image was stored in the electronic medical record. The needle was exchanged for a 6-[place] transition sheath and an antegrade nephrostogram performed (see findings below). The collecting system was decompressed. The tortuous ureter was traversed with a 65 cm KMP catheter and intra-bladder positioning confirmed with contrast injection. Subsequently, the KMP catheter was exchanged for a 26 cm 7-[place] Olympus soft curl ureteral stent. Loops were formed in the urinary bladder and renal pelvis. Limited antegrade nephrostogram was repeated. Given limited traversal of contrast across the indwelling ureteral stent, as well as a moderate-sized hematoma within the renal pelvis, I elected to leave an 8.5-[place] Downey-Tyler nephrostomy. The nephrostomy was connected to gravity drainage, sutured to the skin and a sterile dressing applied. Findings: 1. Antegrade nephrostomy demonstrated severe hydronephrosis, with a markedly dilated and tortuous left ureter in keeping with chronic dilation. The ureter was kinked/obstructed in several segments, notably at the proximal and distal segments. 2. Limited nephrostogram after ureteral stent placement demonstrated a moderate-sized hematoma in the renal pelvis. The proximal ureteral kink was straightened by the indwelling catheter, though the distal kink appeared unchanged. There was notable contrast stagnation in the very dilated ureter. Impression: 1. Successful left 7-[place]ian 26 cm double-J ureteral stent placement. 2. Successful left 8.5-[place] Downey-Tyler nephrostomy placement. Plan/recommendations: The nephrostomy was left as a safety access given extreme tortuosity and kinking of the ureter. Drainage across the double J stent was questionable at completion nephrostogram, possibly secondary to persistent kinking of the ureter despite the presence of the stent. I recommend capping the nephrostomy after resolution of hematuria. This will also allow monitoring of renal function to ensure adequate double-J patency in the setting of a single kidney. The nephrostomy can then be removed for complete internalization. This report was generated with voice-recognition technology. Errors in environmental manager can occur. Please interpret accordingly and contact a radiologist if there are any questions regarding the report. Signed by: Dr. Romario Flood M.D. on 01/06/2018 7:21 AM
--- NOTE | 2018-01-02 16:16 | Progress Note ---
DATE: January 02, 2018 CARDIOLOGY PROGRESS NOTE SUBJECTIVE: The patient denies chest pain or shortness of breath. He had a nephrostomy tube placed today. OBJECTIVE VITALS: Temperature 96.9 degrees, pulse 75, respiratory rate 16, blood pressure 140/77, oxygen saturation 99% on room air. GENERAL: Awake, alert and in no acute distress. LUNGS: Clear to auscultation bilaterally. No wheezes or crackles. CARDIOVASCULAR: Bradycardic. Irregular. Normal S1 and S2. No murmur. ABDOMEN: Soft. EXTREMITIES: No edema. CARDIAC MEDICATIONS: Amlodipine 10 mg p.o. daily. LABS: WBC 10.56, hemoglobin 8.9, hematocrit 26.2, and platelets 274,000. Sodium 140, potassium 4.5, chloride 109, CO2 23, BUN 38, creatinine 3.09. Telemetry is sinus rhythm with second-degree AV block, type 1. IMPRESSION 1. Urinary retention with severe left hydroureteronephrosis and malpositioned left nephroureteral stent. 2. Abnormal urinalysis. 3. Second-degree atrioventricular block, type 1. 4. Coronary artery disease: Status post right coronary artery and left anterior descending stents with 70% stenosis in the circumflex. 5. Hypertension. 6. Sleep apnea. RECOMMENDATIONS: Continue current cardiac medications. The patient's blood pressure is acceptable for age. Continue monitoring the patient on telemetry. Thank you for this consult. We will continue to follow. Job#: [id number] MA
[2018-01-03] VITALS (8 sets, daily range): BP systolic 123–151; BP diastolic 61–74
[2018-01-03] MEDS: SODIUM CHLORIDE 0.9% 1000ML 1,000 ML IV SCH ×2 (03:37→12:37)
[2018-01-03 05:12] LABS: BASOPHILS # (AUTO) 0.1 (0.0-0.1); BASOPHILS % 0.8 % (0.0-1.0); EOSINOPHILS # (AUTO) 0.5 (0.0-0.4); HEMATOCRIT 25.9 % (38.2-49.6); HEMOGLOBIN 8.7 g/dL (14.0-18.0); LYMPHOCYTES % 21.9 % (18.0-39.1); MEAN CORPUSCULAR HEMOGLOBIN 28.2 pg (28-32); MEAN CORPUSCULAR HGB CONC 33.6 g/dL (31-35); MEAN CORPUSCULAR VOLUME 84.1 fL (81-99); MONOCYTES # (AUTO) 0.7 (0.2-0.8); MONOCYTES % 7.5 % (4.4-11.3); NEUTROPHILS # (AUTO) 5.9 (2.1-6.9); NEUTROPHILS % 64.5 % (38.7-80.0); PLATELET COUNT 250 x10e3/uL (140-360); RED BLOOD COUNT 3.08 x10e6/uL (4.3-5.7); RED CELL DISTRIBUTION WIDTH 13.5 % (11.7-14.4)
[2018-01-03 05:36] LABS: ALBUMIN 2.9 g/dL (3.5-5.0); ANION GAP 13.1 mmol/L (8-16); CALCIUM 8.5 mg/dL (8.4-10.2); CREATININE, SERUM 2.68 mg/dL (0.72-1.25); POTASSIUM 4.1 mmol/L (3.5-5.1)
[2018-01-03] MEDS: PANTOPRAZOLE 40 MG 10ML VIAL IV SCH (09:03)
[2018-01-03] MEDS: AMLODIPINE BESYLATE 10 MG TAB PO SCH (09:03)
--- NOTE | 2018-01-03 12:13 | Progress Note ---
DATE: January 03, 2018 SUBJECTIVE: Patient denies chest pain or shortness of breath. OBJECTIVE VITAL SIGNS: Temperature 96.5 degrees, pulse 56, respiratory 19, blood pressure 123/61. Oxygen saturation 97% on room air. GENERAL: Awake, alert, in no acute distress. LUNGS: Clear to auscultation bilaterally. No wheezes or crackles. CARDIOVASCULAR: Normal rate, regular rhythm. Normal S1, S2. No new murmur. ABDOMEN: Soft. EXTREMITIES: No edema. CARDIAC MEDICATIONS: Amlodipine 10 mg p.o. daily. LABS: WBC 9.07, hemoglobin 8.7, hematocrit 25.9, platelets 250. Sodium 143, potassium 4.1, chloride 112, CO2 22, BUN 31, creatinine 2.68. TELEMETRY: Sinus rhythm with first degree AV block. IMPRESSION 1. Urinary retention with severe left hydroureteronephrosis and malpositioned left nephroureteral stent. 2. Abnormal urinalysis. 3. Second-degree atrioventricular block type 1. 4. Coronary artery disease status post right coronary artery and left anterior descending stents with 70% stenosis in the circumflex. 5. Hypertension. 6. Sleep apnea. RECOMMENDATIONS: Continue current cardiac medications. The patient's blood pressure, for the most part, is acceptable for age. Continue monitoring the patient on telemetry given his second-degree AV block as above. Please have the patient followup with us in the office in 1 to 2 weeks after discharge. Thank you for this consult. We will continue to follow. Job#: [id number] BELLA
[2018-01-03] MEDS ORDERED: ACETAMINOPHEN/CODEINE 300MG - 30MG TAB PO PRN ×2 (12:15→12:45)
[2018-01-03] MEDS ORDERED: IOPAMIDOL 300MG/ML 100 ML INFUS..BTL IV ONE (12:57)
--- NOTE | 2018-01-03 13:40 | Diagnostic Imaging Report ---
PROCEDURE:IR CONSULT COMPARISON:Nephrostomy and stent placement dated 01/02/2018 INDICATIONS:LEFT RENAL STENT CHECK AND REMOVAL FINDINGS:Total of 3 films were obtained. These show a double-J left ureteral stent and a nephrostomy with an lower pole on the left. Walker catheter is also noted. Injection of contrast material through the nephrostomy catheter shows opacification of the renal pelvis and the ureter extending into the bladder. CONCLUSION: 1. Patent double J stent with contrast injected through an antegrade nephrostogram extending to the bladder. 2. The nephrostomy catheter was removed as ordered. Raul Maravilla D.O. Dictated by: Raul Maravilla D.O. on 01/03/2018 at 13:44 Electronically approved by: Raul Maravilla D.O. on 01/03/2018 at 13:44
[2018-01-04] VITALS: BP 135/63
[2018-01-04] MEDS: LEVOFLOXACIN 250MG/D5W 50ML 50 ML IV SCH (00:30)
[2018-01-04 04:00] VITALS: BP 137/69
[2018-01-04 06:17] LABS: BASOPHILS # (AUTO) 0.1 (0.0-0.1); BASOPHILS % 1.1 % (0.0-1.0); EOSINOPHILS # (AUTO) 0.6 (0.0-0.4); EOSINOPHILS % 7.9 % (0.0-6.0); HEMATOCRIT 26.8 % (38.2-49.6); HEMOGLOBIN 9.1 g/dL (14.0-18.0); LYMPHOCYTES # (AUTO) 2.3 (1.0-3.2); LYMPHOCYTES % 32.1 % (18.0-39.1); MEAN CORPUSCULAR HEMOGLOBIN 28.3 pg (28-32); MEAN CORPUSCULAR VOLUME 83.2 fL (81-99); MONOCYTES # (AUTO) 0.5 (0.2-0.8); MONOCYTES % 7.6 % (4.4-11.3); NEUTROPHILS # (AUTO) 3.6 (2.1-6.9); PLATELET COUNT 278 x10e3/uL (140-360); RED BLOOD COUNT 3.22 x10e6/uL (4.3-5.7); RED CELL DISTRIBUTION WIDTH 13.3 % (11.7-14.4)
[2018-01-04 06:30] LABS: ALBUMIN 2.9 g/dL (3.5-5.0); CALCIUM 8.7 mg/dL (8.4-10.2); CREATININE, SERUM 2.43 mg/dL (0.72-1.25)
[2018-01-04] MEDS: SODIUM CHLORIDE 0.9% 1000ML 1,000 ML IV SCH (06:51)
[2018-01-04 07:53] VITALS: BP 143/67
[2018-01-04] MEDS: PANTOPRAZOLE 40 MG 10ML VIAL IV SCH (08:51)
[2018-01-04] MEDS: AMLODIPINE BESYLATE 10 MG TAB PO SCH (08:51)
[2018-01-04 09:46] VITALS: BP 143/67
[2018-01-04 11:57] VITALS: BP 157/72
[2018-01-04] MEDS ORDERED: LEVAQUIN250 MG PO (12:12)
--- NOTE | 2018-01-06 07:24 | Diagnostic Imaging Report ---
Left ureteral stent and nephrostomy placement 01/02/2018 Pre-Procedure Diagnosis: Left ureteral obstruction. Single kidney. Prostatomegaly with bladder outlet obstruction. Post-procedure Diagnosis: Left ureteral obstruction. Single kidney. Prostatomegaly with bladder outlet obstruction. Printing Roller Handler: Danette Flood Hairspring Fabrication Supervisor: None Sedation: Moderate sedation was provided with intravenous fentanyl and Versed. Heart rate, rhythm and oxygen saturation were monitored in real-time by a dedicated interventional radiology nurse under my direct supervision. Blood pressure was monitored in 5 minute increments. 1% lidocaine was used for local anesthesia. Total sedation time: 30 minutes Radiation Dose: 1360.1 cGycm2 (Dose Area Product) Fluoroscopy time: 4.2 minutes Estimate blood loss: 10 mL Blood administered: None Complications: None Implants/Grafts: None Specimen: None Procedure: Informed consent was obtained and the patient placed prone. A timeout was performed. Preliminary ultrasound of the left kidney was performed. The left back was prepped and draped in standard sterile fashion. Using real-time ultrasound guidance a 21-gauge needle was advanced into a mid pole posterior left calyx. An image was stored in the electronic medical record. The needle was exchanged for a 6-Mal[place] transition sheath and an antegrade nephrostogram performed (see findings below). The collecting system was decompressed. The tortuous ureter was traversed with a 65 cm KMP catheter and intra-bladder positioning confirmed with contrast injection. Subsequently, the KMP catheter was exchanged for a 26 cm 7-Mal[place] Olympus soft curl ureteral stent. Loops were formed in the urinary bladder and renal pelvis. Limited antegrade nephrostogram was repeated. Given limited traversal of contrast across the indwelling ureteral stent, as well as a moderate-sized hematoma within the renal pelvis, I elected to leave an 8.5-Mal[place] Downey-Tyler nephrostomy. The nephrostomy was connected to gravity drainage, sutured to the skin and a sterile dressing applied. Findings: 1. Antegrade nephrostomy demonstrated severe hydronephrosis, with a markedly dilated and tortuous left ureter in keeping with chronic dilation. The ureter was kinked/obstructed in several segments, notably at the proximal and distal segments. 2. Limited nephrostogram after ureteral stent placement demonstrated a moderate-sized hematoma in the renal pelvis. The proximal ureteral kink was straightened by the indwelling catheter, though the distal kink appeared unchanged. There was notable contrast stagnation in the very dilated ureter. Impression: 1. Successful left 7-Malawian 26 cm double-J ureteral stent placement. 2. Successful left 8.5-Mal[place]ian Downey-Tyler nephrostomy placement. Plan/recommendations: The nephrostomy was left as a safety access given extreme tortuosity and kinking of the ureter. Drainage across the double J stent was questionable at completion nephrostogram, possibly secondary to persistent kinking of the ureter despite the presence of the stent. I recommend capping the nephrostomy after resolution of hematuria. This will also allow monitoring of renal function to ensure adequate double-J patency in the setting of a single kidney. The nephrostomy can then be removed for complete internalization. This report was generated with voice-recognition technology. Errors in car dumper operator helper can occur. Please interpret accordingly and contact a radiologist if there are any questions regarding the report. Signed by: Dr. Romario Flood M.D. on 01/06/2018 7:21 AM
--- NOTE | 2018-01-09 10:49 | Diagnostic Imaging Report ---
Left ureteral stent and nephrostomy placement 01/02/2018 Pre-Procedure Diagnosis: Left ureteral obstruction. Single kidney. Prostatomegaly with bladder outlet obstruction. Post-procedure Diagnosis: Left ureteral obstruction. Single kidney. Prostatomegaly with bladder outlet obstruction. Net Developer With [employer]: Danette Flood Bearing Maker: None Sedation: Moderate sedation was provided with intravenous fentanyl and Versed. Heart rate, rhythm and oxygen saturation were monitored in real-time by a dedicated interventional radiology nurse under my direct supervision. Blood pressure was monitored in 5 minute increments. 1% lidocaine was used for local anesthesia. Total sedation time: 30 minutes Radiation Dose: 1360.1 cGycm2 (Dose Area Product) Fluoroscopy time: 4.2 minutes Estimate blood loss: 10 mL Blood administered: None Complications: None Implants/Grafts: None Specimen: None Procedure: Informed consent was obtained and the patient placed prone. A timeout was performed. Preliminary ultrasound of the left kidney was performed. The left back was prepped and draped in standard sterile fashion. Using real-time ultrasound guidance a 21-gauge needle was advanced into a mid pole posterior left calyx. An image was stored in the electronic medical record. The needle was exchanged for a 6-[place]er transition sheath and an antegrade nephrostogram performed (see findings below). The collecting system was decompressed. The tortuous ureter was traversed with a 65 cm KMP catheter and intra-bladder positioning confirmed with contrast injection. Subsequently, the KMP catheter was exchanged for a 26 cm 7-[place] Olympus soft curl ureteral stent. Loops were formed in the urinary bladder and renal pelvis. Limited antegrade nephrostogram was repeated. Given limited traversal of contrast across the indwelling ureteral stent, as well as a moderate-sized hematoma within the renal pelvis, I elected to leave an 8.5-[place] Downey-Tyler nephrostomy. The nephrostomy was connected to gravity drainage, sutured to the skin and a sterile dressing applied. Findings: 1. Antegrade nephrostomy demonstrated severe hydronephrosis, with a markedly dilated and tortuous left ureter in keeping with chronic dilation. The ureter was kinked/obstructed in several segments, notably at the proximal and distal segments. 2. Limited nephrostogram after ureteral stent placement demonstrated a moderate-sized hematoma in the renal pelvis. The proximal ureteral kink was straightened by the indwelling catheter, though the distal kink appeared unchanged. There was notable contrast stagnation in the very dilated ureter. Impression: 1. Successful left 7-[place] 26 cm double-J ureteral stent placement. 2. Successful left 8.5-[place] Downey-Tyler nephrostomy placement. Plan/recommendations: The nephrostomy was left as a safety access given extreme tortuosity and kinking of the ureter. Drainage across the double J stent was questionable at completion nephrostogram, possibly secondary to persistent kinking of the ureter despite the presence of the stent. I recommend capping the nephrostomy after resolution of hematuria. This will also allow monitoring of renal function to ensure adequate double-J patency in the setting of a single kidney. The nephrostomy can then be removed for complete internalization. This report was generated with voice-recognition technology. Errors in certified medical transcriptionist can occur. Please interpret accordingly and contact a radiologist if there are any questions regarding the report. Signed by: Dr. Romario Flood M.D. on 01/06/2018 7:21 AM
--- NOTE | 2018-01-10 14:16 | Diagnostic Imaging Report ---
PROCEDURE:FLUORO UP TO 1 HR-GENERAL TECHNIQUE:Left retrograde wire placement INDICATION:Ureteral stent dysfunction. COMPARISON:None. FINDINGS:A total of 6 films intra-operative films were obtained. Double-J ureteral stent was partially removed. Wire was placed into the left ureter and left renal pelvis. A new stent was placed but images documenting the final position were not stored. Fluoroscopy time: 50 seconds. Cumulative area dose product: 529.95 cGycm2 Cumulative air kerma: 14.75 mGy CONCLUSION:Please see the full report provided by the performing physician. Raul Maravilla D.O. Dictated by: Raul Maravilla D.O. on 01/10/2018 at 14:19 Electronically approved by: Raul Maravilla D.O. on 01/10/2018 at 14:19
== END 2018-01-04 12:54 | disposition home or self-care (01) | DRG 717 ==
LOC: ER 19:58 → ERHOLD 22:51 → MED/SURG 01-01 00:56
PROVIDERS: ADMIT Internal Medicine; ATTEND Internal Medicine
PROC: 0T778ZZ Dilation of Left Ureter, Via Natural or Artificial Opening Endoscopic (ICD-10-PCS; 2018-01-01)
PROC: BT1F1ZZ Fluoroscopy of Left Kidney, Ureter and Bladder using Low Osmolar Contrast (ICD-10-PCS; 2018-01-01)
PROC: 0TCB8ZZ Extirpation of Matter from Bladder, Via Natural or Artificial Opening Endoscopic (ICD-10-PCS; 2018-01-01)
PROC: 0T5B8ZZ Destruction of Bladder, Via Natural or Artificial Opening Endoscopic (ICD-10-PCS; principal; 2018-01-01 11:00)
PROC: BT141ZZ Fluoroscopy of Kidneys, Ureters and Bladder using Low Osmolar Contrast (ICD-10-PCS; 2018-01-02)
PROC: 0T9430Z Drainage of Left Kidney Pelvis with Drainage Device, Percutaneous Approach (ICD-10-PCS; 2018-01-02)
PROC: 0T778DZ Dilation of Left Ureter with Intraluminal Device, Via Natural or Artificial Opening Endoscopic (ICD-10-PCS; 2018-01-02)
PROC: BT141ZZ Fluoroscopy of Kidneys, Ureters and Bladder using Low Osmolar Contrast (ICD-10-PCS; 2018-01-03)
PROC: 0TP98DZ Removal of Intraluminal Device from Ureter, Via Natural or Artificial Opening Endoscopic (ICD-10-PCS; 2018-01-03)
DX: N40.1 Benign prostatic hyperplasia with lower urinary tract symptoms (principal); T83.123A Displacement of other urinary stents, initial encounter; N13.30 Unspecified hydronephrosis; N13.4 Hydroureter; N17.9 Acute kidney failure, unspecified; N13.8 Other obstructive and reflux uropathy; E87.1 Hypo-osmolality and hyponatremia; Q60.0 Renal agenesis, unilateral; R33.8 Other retention of urine; N32.89 Other specified disorders of bladder; I44.1 Atrioventricular block, second degree; I25.10 Atherosclerotic heart disease of native coronary artery without angina pectoris; Z95.5 Presence of coronary angioplasty implant and graft; I12.9 Hypertensive chronic kidney disease with stage 1 through stage 4 chronic kidney disease, or unspecified chronic kidney disease; N18.3 Chronic kidney disease, stage 3 (moderate); N41.1 Chronic prostatitis; E83.41 Hypermagnesemia; N43.3 Hydrocele, unspecified
CPT/HCPCS: 36415; 50695; 51700; 74018; 74176; 74425; 74470; 76000; 76942; 80053; 81001; 82550; 82553; 83735; 84484; 85025; 85610; 85730; 87086; 93005; 99284; C2617; J0461; J1100; J1956; J2001; J2250; J2405; J7030; J7040; Q9967

== ENCOUNTER → 2018-05-14 | Day surgery (SDC) | payer MEDICARE ==
[2018-05-12 12:05] LABS: BASOPHILS # (AUTO) 0.1 (0.0-0.1); BASOPHILS % 1.2 % (0.0-1.0); EOSINOPHILS # (AUTO) 0.3 (0.0-0.4); EOSINOPHILS % 3.9 % (0.0-6.0); HEMATOCRIT 26.1 % (38.2-49.6); HEMOGLOBIN 8.2 g/dL (14.0-18.0); LYMPHOCYTES # (AUTO) 1.8 (1.0-3.2); LYMPHOCYTES % 21.4 % (18.0-39.1); MEAN CORPUSCULAR HEMOGLOBIN 26.4 pg (28-32); MEAN CORPUSCULAR HGB CONC 31.4 g/dL (31-35); MEAN CORPUSCULAR VOLUME 83.9 fL (81-99); MONOCYTES # (AUTO) 0.6 (0.2-0.8); MONOCYTES % 7.2 % (4.4-11.3); NEUTROPHILS # (AUTO) 5.4 (2.1-6.9); NEUTROPHILS % 65.8 % (38.7-80.0); PLATELET COUNT 363 x10e3/uL (140-360); RED BLOOD COUNT 3.11 x10e6/uL (4.3-5.7); RED CELL DISTRIBUTION WIDTH 15.4 % (11.7-14.4)
[2018-05-12 12:15] LABS: ANION GAP 20.1 mmol/L (8-16); CALCIUM 9.7 mg/dL (8.4-10.2); CREATININE, SERUM 9.18 mg/dL (0.72-1.25); POTASSIUM 4.1 mmol/L (3.5-5.1)
[~2018-05-14] MED LIST changes: +BUPIVACAINE HCL 0.5% INJ 30 ML VIAL INJ ONE; +CETIRIZINE HCL5 MG PO; +CHOLESTYRAMINE L4 GM PO; +COLACE100 MG PO; +DEXAMETHASONE SOD PHOS INJ 4 MG/ML VIAL ONE; +FENTANYL CITRATE/PF 100MCG/2 ML INJ ONE; +FLUCONAZOLE 200 MG/100 ML 100 ML IV ONE; +FLUCONAZOLE100 MG PO; +GENTAMICIN 80MG/NS 100 ML 100 ML IV ONE; +IOPAMIDOL 610MG/1ML 300 MG/ML VIAL IV ONE; +LEVAQUIN250 MG PO; +LEVOTHYROXINE25 MCG PO; +LIDOCAINE HCL 2% LOCAL INJ 5 ML SDV VIAL INJ ONE; +METHENAMINE HIPP1 GM PO; +MORPHINE SULFATE 2 MG/ML SYR ONE; +MUPIROCIN 2% OINT 22 GM TUBE ONE; +NORVASC10 MG PO; +ONDANSETRON HCL INJ 2 MG/ML VIAL ONE; +PHENYLEPHRINE HCL 1% 10 MG/ML VIAL ONE; +PROPOFOL IV EMULSION 10 MG/ML 20 ML VIAL ONE; +SEVOFLURANE INHAL SOLN 250 ML PEN BTL ONE; +SODIUM CHLORIDE 0.9% 500ML 500 ML ONE; +TYLENOL # 31 EA PO; +TYLENOL WITH C1 EACH PO; +VANCOCIN HCL250 MG PO
[2018-05-14 07:23] LABS: INR 0.98; PROTHROMBIN TIME 13.9 seconds (11.9-14.5)
[2018-05-14 07:24] LABS: PARTIAL THROMBOPLASTIN TIME 43.9 seconds (23.8-35.5)
[2018-05-14 07:27] LABS: ANION GAP 14.5 mmol/L (8-16); CALCIUM 9.6 mg/dL (8.4-10.2); CREATININE, SERUM 6.9 mg/dL (0.72-1.25); POTASSIUM 3.5 mmol/L (3.5-5.1)
[2018-05-14 11:30] VITALS: BP 133/71
--- NOTE | 2018-06-26 02:07 | Operative Report ---
DATE OF PROCEDURE: May 14, 2018 PREOPERATIVE DIAGNOSES: 1. Large left hydrocele. 2. Left spermatoceles. 3. Left ureteral stricture. 4. Left hydronephrosis due to stricture. 5. Left indwelling ureteral stent. POSTOPERATIVE DIAGNOSES: 1. Large left hydrocele. 2. Left spermatoceles. 3. Left ureteral stricture. 4. Left hydronephrosis due to stricture. 5. Left indwelling ureteral stent. 6. Bladder diverticulum. OPERATIONS PERFORMED: 1. Excision of left large hydrocele (separate procedure performed for the hydrocele). 2. Left spermatocelectomy x2 (separate procedure performed for the left upper pole spermatoceles). 3. Cystourethroscopy with complicated removal of left indwelling ureteral stent (separate procedure performed for the diagnosis of stent). 4. Cystourethroscopy with dilation of left ureteral stricture (separate procedure performed for the diagnosis of stricture). 5. Cystourethroscopy with insertion of left indwelling ureteral stent (separate procedure performed to relieve the hydronephrosis). 6. Radiological services for supervision and interpretation of stricture dilation. 7. Interpretation of retrograde ureteropyelography. 8. Supervision of fluoroscopy, no radiologist present. 9. Interpretation of cystography. 10. Regional nerve block (separate procedure performed for postoperative pain control and not required for the actual performance of surgery, which is done under general anesthesia). ANESTHESIA: General. COMPLICATIONS: None. CLINICAL SUMMARY: Lior Squires is a very complicated 73-year-old man. He has renal failures, on hemodialysis. He is status post right nephrectomy. He has a chronic left ureteral stricture. He has severe BPH. He is status post transurethral resection of the prostate. He has a poorly functioning left kidney, but has severe ureteral stricture that requires stent changes. He also has a very high large left hydrocele that is symptomatic and bothersome and he wants it addressed. He is aware of the risks of bleeding, infection, injury to adjacent structures, need for additional procedures, and elected to proceed. OPERATIVE PROCEDURE IN DETAIL: Informed consent was verified. Lior Squires was properly identified, taken to the operating room, and placed on the cystoscopy table in supine position. Anesthesia was uneventfully begun. The patient's genitalia were then shaved, prepared, and draped in usual sterile fashion. A left scrotal incision was then made and carried through all layers of the scrotum until it reached the tunica vaginalis. The tunica vaginalis was dissected free from the remainder of the scrotum, and the testis within the tunica vaginalis was delivered. The tunica vaginalis was incised anteriorly and then we evacuated the hydroceles. The hydrocele sac was then excised until only a stump remained just enough to bahman it. The hydrocele sac was sent for histopathological analysis. We identified spermatoceles in the upper pole, these were significant. We carefully isolated the 2 spermatoceles, dissected them down to their neck. We ligated the neck with a Vicryl suture, and we excised the spermatoceles and sent them for histopathological analysis. We then covered the epididymal head back up and secured those tissues with absorbable suture. We then everted the cut edge of the hydrocele and approximated loosely behind the epididymis with absorbable suture. Marcaine without epinephrine was then utilized to infiltrate the spermatic cord proximally, thus performing a cord block for postoperative pain control. This is not required for the actual performance of the surgery, which was done under general anesthesia. A drain was then placed through a separate stab incision, secured to the skin with a chromic suture. Copious irrigation was performed. The testis was placed back into the scrotum into its normal anatomical position. The scrotal incision was then approximated in 2 layers utilizing chromic suture in running fashion. The patient was then carefully and gently repositioned in dorsal lithotomy position with all pressure points well padded. His genitalia were prepared and draped in usual sterile fashion. The 22.5-[place]ian cystoscope sheath with visual obturator in place was atraumatically inserted into patient's urethra. It was guided down the unremarkable distal urethra, through a normal sphincteric region, through the prostate bed, which was significant for being status post transurethral resection of the prostate. There was significant amount of friable tissue remaining. The prostate bed was relatively open. We entered the patient's bladder. We identified a stent emerging from the left ureteral orifice. A guidewire was then placed alongside the stent and guided to the level of the patient's kidney. The stent was then grasped, completely removed, and discarded. A double-lumen ureteral catheter was then utilized as a coaxial dilator sheath that was inserted over the guidewire and guided to the level of the patient's kidney. We dilated the dense ureteral stricture as we did this. Clear efflux was obtained from the hydronephrotic drip. Contrast was injected. With cystoscopic and fluoroscopic guidance, a left-sided indwelling ureteral stent was then placed. It was coiled in patient's kidney as well as patient's bladder at the end. Interpretation of retrograde ureteropyelography: The left upper collecting system anatomy was highly irregular. It was hydronephrotic, extremely tortuous. The stent was in good position, coiled in patient's kidney as well as patient's bladder at the end of the case. We could not identify the right ureteral orifice. No suspicious lesions were noted. The patient's bladder was drained. Contrast was injected performing cystography. Interpretation of cystography: The patient's bladder is very large, is highly irregular, multiple diverticula are present. The patient's bladder was drained. The cystoscope was withdrawn. Digital rectal examination revealed a 50 g prostate, smooth, non-fluctuant, and without any nodules. Sterile dressings were applied to the scrotal incisions, and secured in place with scrotal support. The patient was uneventfully reversed from anesthesia and taken to recovery room in stable condition. There were no complications to the procedure. Patient tolerated the procedure well. Sponge, needle, and instrument counts were quoted as correct x2 at the end of the case. Estimated blood loss was minimal. Explicit postop instructions were given. Will follow the patient up in the office. Job#: [id number]
== END | disposition home or self-care (01) ==
LOC: OR 06:33
PROVIDERS: ATTEND Urology
DX: N43.3 Hydrocele, unspecified (principal); N43.42 Spermatocele of epididymis, multiple; N13.1 Hydronephrosis with ureteral stricture, not elsewhere classified; Z46.6 Encounter for fitting and adjustment of urinary device; N40.1 Benign prostatic hyperplasia with lower urinary tract symptoms; N32.3 Diverticulum of bladder; I12.0 Hypertensive chronic kidney disease with stage 5 chronic kidney disease or end stage renal disease; N18.6 End stage renal disease; N39.0 Urinary tract infection, site not specified; R97.20 Elevated prostate specific antigen [PSA]; K21.9 Gastro-esophageal reflux disease without esophagitis; I25.10 Atherosclerotic heart disease of native coronary artery without angina pectoris; G47.33 Obstructive sleep apnea (adult) (pediatric); E78.00 Pure hypercholesterolemia, unspecified; I44.0 Atrioventricular block, first degree; Z90.5 Acquired absence of kidney; Z01.812 Encounter for preprocedural laboratory examination; Z88.1 Allergy status to other antibiotic agents; Z99.2 Dependence on renal dialysis; Z85.528 Personal history of other malignant neoplasm of kidney; Z95.5 Presence of coronary angioplasty implant and graft
CPT/HCPCS: 36415 ×2; 52332; 52341; 55040; 74420; 80048 ×2; 85025; 85610; 85730; 87086; 88304; C1758; C2617; J1100; J1450; J1580; J2001; J2270; J2370; J2405; J7040; Q9967

== ENCOUNTER → 2018-10-14 | Day surgery (SDC) | payer MEDICARE ==
[2018-10-10 13:23] LABS: BASOPHILS # (AUTO) 0.1 (0.0-0.1); EOSINOPHILS # (AUTO) 0.3 (0.0-0.4); EOSINOPHILS % 3.6 % (0.0-6.0); HEMATOCRIT 30.8 % (38.2-49.6); HEMOGLOBIN 10.1 g/dL (14.0-18.0); LYMPHOCYTES # (AUTO) 1.9 (1.0-3.2); LYMPHOCYTES % 27.9 % (18.0-39.1); MEAN CORPUSCULAR HEMOGLOBIN 27.5 pg (28-32); MEAN CORPUSCULAR HGB CONC 32.8 g/dL (31-35); MEAN CORPUSCULAR VOLUME 83.9 fL (81-99); MONOCYTES # (AUTO) 0.5 (0.2-0.8); MONOCYTES % 6.8 % (4.4-11.3); NEUTROPHILS # (AUTO) 4.1 (2.1-6.9); NEUTROPHILS % 60.3 % (38.7-80.0); PLATELET COUNT 235 x10e3/uL (140-360); RED BLOOD COUNT 3.67 x10e6/uL (4.3-5.7); RED CELL DISTRIBUTION WIDTH 17.5 % (11.7-14.4)
[2018-10-10 13:36] LABS: ANION GAP 15.7 mmol/L (8-16); CALCIUM 8.8 mg/dL (8.4-10.2); CREATININE, SERUM 8.38 mg/dL (0.72-1.25); POTASSIUM 4.7 mmol/L (3.5-5.1)
[2018-10-10 13:39] LABS: INR 0.93
[2018-10-10 13:40] LABS: PARTIAL THROMBOPLASTIN TIME 30.5 seconds (23.8-35.5)
--- NOTE | 2018-10-10 14:13 | Diagnostic Imaging Report ---
Exam: KUB-2 views Clinical History: History of ureteral stricture. Pre admit. Comparison: None. Findings: There is a left-sided internal ureteral stent with proximal pigtail in the expected location of the proximal ureter and the distal pigtail within the bladder. No evidence of urinary stones. There are multiple surgical clips projecting over the right abdomen. Nonobstructive bowel gas pattern. No acute osseous abnormality. Impression: Left-sided internal ureteral stent as above. Signed by: Dr. Renny Rogers MD on 10/10/2018 2:09 PM
[~2018-10-14] MED LIST changes: +BELLADONNA/OPIUM 60 MG SUPP PR ONE; -BUPIVACAINE HCL 0.5% INJ 30 ML VIAL INJ ONE; -FENTANYL CITRATE/PF 100MCG/2 ML INJ ONE; -FLUCONAZOLE 200 MG/100 ML 100 ML IV ONE; -MORPHINE SULFATE 2 MG/ML SYR ONE; -MUPIROCIN 2% OINT 22 GM TUBE ONE; -ONDANSETRON HCL INJ 2 MG/ML VIAL ONE; -PHENYLEPHRINE HCL 1% 10 MG/ML VIAL ONE
[2018-10-14 08:45] VITALS: BP 116/59
--- NOTE | 2018-11-17 15:24 | Operative Report ---
DATE OF PROCEDURE: 10/14/2018 SURGEON: Estiven Arroyo MD PREOPERATIVE DIAGNOSES: 1. Left ureteral stricture. 2. Left hydronephrosis due to stricture. 3. Left indwelling ureteral stent. POSTOPERATIVE DIAGNOSES: 1. Left ureteral stricture. 2. Left hydronephrosis due to stricture. 3. Left indwelling ureteral stent. OPERATIONS PERFORMED: 1. Cystourethroscopy with complicated removal of left indwelling ureteral stent (separate procedure performed for the diagnosis of the stent). 2. Cystourethroscopy with dilation of left ureteral stricture (separate procedure performed for the diagnosis of stricture). 3. Radiological services for supervision and interpretation of stricture dilation. 4. Cystourethroscopy with insertion of left indwelling ureteral stent (separate procedure performed to relieve the hydronephrosis). 5. Interpretation of retrograde ureteropyelography. 6. Supervision of fluoroscopy, no radiologist present. ANESTHESIA: General. COMPLICATIONS: None. CLINICAL SUMMARY: Lior Squires is a very complicated 73-year-old man with chronic left indwelling ureteral stent and multiple urological and medical problems. He is brought for the above procedures. He is aware of the risks of bleeding, infection, injury to adjacent structures, need for additional procedures and elected to proceed. PROCEDURE IN DETAIL: Informed consent was verified. Lior Squires was properly identified, taken to the operating room, placed on the cystoscopy table in supine position. Anesthesia was uneventfully begun. The patient was then carefully and gently repositioned in dorsal lithotomy position with all pressure points well padded. His genitalia were prepared and draped in usual sterile fashion A 22.5-Hungarian cystoscope sheath with the visual obturator in place was then atraumatically inserted into the patient's urethra and was guided down the unremarkable urethra, unremarkable stricture through the prostate bed, which was relatively the patient's bladder, which exhibited diffuse diverticula. Small stone was evacuated and a stent emerging from the left ureteral orifice. The stent appeared to be kind of migrated distally somewhat. Nevertheless, it bridged the previous site of stricture. The guide was then placed alongside the stent and guided to the level of the patient's kidney. The stent was then grasped, completely removed, and discarded. Double-lumen ureteral catheter was utilized as a coaxial dilator sheath, it was placed over the guidewire and guided into the level of the proximal ureter that was dilating the distal ureter. Contrast was injected. With cystoscopic and fluoroscopic guidance, a left-sided indwelling ureteral stent was then placed to coil the patient's kidney as well as the patient's bladder. The retaining suture was cut short. Interpretation of retrograde ureteropyelography, severe left-sided hydroureteronephrosis down the level of the obstruction was noted. There were multiple clips associated with the patient's right nephrectomy. There was tortuosity of the ureter. The stent was in good position. We coiled the patient's kidneys as well as the patient's bladder at the end of the case. The patient's bladder was drained. Cystoscope was withdrawn. Belladonna and opium suppository was placed. The patient was uneventfully reversed from anesthesia and taken to recovery room in stable condition. There were no complications at the end of procedure. The patient tolerated the procedure well. Explicit postoperative instructions were given. We will follow the patient with you in the office. Estiven Arroyo MD [place]/MODL /[id number] cc: Pascual Waldron MD
== END | disposition home or self-care (01) ==
LOC: OR 05:00
PROVIDERS: ATTEND Urology
DX: N13.1 Hydronephrosis with ureteral stricture, not elsewhere classified (principal); K21.9 Gastro-esophageal reflux disease without esophagitis; I25.10 Atherosclerotic heart disease of native coronary artery without angina pectoris; Z95.5 Presence of coronary angioplasty implant and graft; I10 Essential (primary) hypertension; E78.5 Hyperlipidemia, unspecified; G47.33 Obstructive sleep apnea (adult) (pediatric); Z01.812 Encounter for preprocedural laboratory examination; Z96.0 Presence of urogenital implants
CPT/HCPCS: 36415 ×2; 52332; 52341; 74018; 74420; 80048; 84132; 85025; 85610; 85730; 87086; C2617; J1100; J1580; J2001; J2704; J7040; Q9967

== ENCOUNTER → 2018-11-13 | Day surgery (SDC) | payer MEDICARE ==
[2018-11-11 12:15] LABS: BASOPHILS # (AUTO) 0.1 (0.0-0.1); BASOPHILS % 1.2 % (0.0-1.0); EOSINOPHILS # (AUTO) 0.3 (0.0-0.4); EOSINOPHILS % 4.4 % (0.0-6.0); HEMATOCRIT 35.4 % (38.2-49.6); HEMOGLOBIN 11.7 g/dL (14.0-18.0); LYMPHOCYTES # (AUTO) 1.9 (1.0-3.2); LYMPHOCYTES % 28.7 % (18.0-39.1); MEAN CORPUSCULAR HEMOGLOBIN 29.5 pg (28-32); MEAN CORPUSCULAR HGB CONC 33.1 g/dL (31-35); MEAN CORPUSCULAR VOLUME 89.2 fL (81-99); MONOCYTES # (AUTO) 0.6 (0.2-0.8); MONOCYTES % 9.2 % (4.4-11.3); NEUTROPHILS # (AUTO) 3.8 (2.1-6.9); NEUTROPHILS % 56.2 % (38.7-80.0); PLATELET COUNT 238 x10e3/uL (140-360); RED BLOOD COUNT 3.97 x10e6/uL (4.3-5.7); RED CELL DISTRIBUTION WIDTH 15.6 % (11.7-14.4)
[2018-11-11 12:23] LABS: INR 0.92; PROTHROMBIN TIME 12.8 seconds (11.9-14.5)
[2018-11-11 12:32] LABS: ALBUMIN 3.8 g/dL (3.5-5.0); ALBUMIN/GLOBULIN RATIO 0.9 (0.8-2.0); ANION GAP 14.2 mmol/L (8-16); CREATININE, SERUM 5.01 mg/dL (0.72-1.25); POTASSIUM 4.2 mmol/L (3.5-5.1)
[~2018-11-13] VITALS: Ht 182.9 cm; Wt 86.2 kg
[~2018-11-13] MED LIST changes: +ADENOSINE 3MG/1ML 30ML VIAL ONE; +ALPRAZOLAM 0.5 MG TAB ONE; -BELLADONNA/OPIUM 60 MG SUPP PR ONE; -DEXAMETHASONE SOD PHOS INJ 4 MG/ML VIAL ONE; +DIPHENHYDRAMINE HCL 25 MG CAP ONE; +EPTIFIBATIDE 10 ML ONE; +FENTANYL CITRATE/PF 100MCG/2 ML INJ ONE; -GENTAMICIN 80MG/NS 100 ML 100 ML IV ONE; +HEPARIN SOD (PORCINE) 1000 UNIT/ML 30ML ONE; +HEPARIN SOD/SOD CHLORIDE 2,000 ML ONE; +IOPAMIDOL 370 MG/ML 200 ML INFUS..BTL INJ ONE; -IOPAMIDOL 610MG/1ML 300 MG/ML VIAL IV ONE; +LIDOCAINE HCL 2% LOCAL 20 ML VIAL ONE; -LIDOCAINE HCL 2% LOCAL INJ 5 ML SDV VIAL INJ ONE; +MIDAZOLAM HCL 2 MG/2 ML VIAL ONE; -PROPOFOL IV EMULSION 10 MG/ML 20 ML VIAL ONE; -SEVOFLURANE INHAL SOLN 250 ML PEN BTL ONE; +SODIUM CHLORIDE 0.9% 1000ML 1,000 ML ONE; -SODIUM CHLORIDE 0.9% 500ML 500 ML ONE; +SODIUM CHLORIDE 0.9% 50ML 50 ML ONE; +TICAGRELOR 90 MG TABLET ONE
[2018-11-13 10:45] VITALS: BP 147/75
[2018-11-13 14:30] VITALS: BP 130/52
--- NOTE | 2018-11-13 14:30 | NUR ---
Received to yard laborer recovery room 20. Awake, alert, and oriented x3, VSS, gauze to right groin C/D/I, denies pain, elmer. pedal pulses 2+. No complaints, family at bedside.
[2018-11-13 14:45] VITALS: BP 128/59
[2018-11-13 15:00] VITALS: BP 132/55
[2018-11-13 15:15] VITALS: BP 132/55
--- NOTE | 2018-11-13 15:15 | NUR ---
D/C instructions given written and verbally, patient and son verbalize understanding. Ambulated to bathroom, voids without difficulty. Gauze to right groin c/d/i, no hematoma or s&s of bleeding noted. IV d/c'd per protocol. D/C'd to private vehicle via w/c, accompanied by arlyn Tinajero.
--- NOTE | 2018-11-14 15:09 | Operative Report ---
DATE OF PROCEDURE: 11/13/2018 SURGEON: Samuel Rueda MD INDICATIONS: Coronary artery disease, angina with abnormal stress test. PROCEDURES PERFORMED: 1. Left heart catheterization, selective coronary angiography. 2. Fractional flow reserve measurement across the left main and left anterior descending arteries. 3. Deployment right groin Vascade closure device. COMPLICATIONS: None. RECOMMENDATIONS: Coronary artery bypass grafting. DESCRIPTION OF PROCEDURE: Access obtained in the right femoral artery. A 6-Korean sheath was placed. Left main distal 70% lesion. Stent in the left anterior descending artery 50% in-stent restenosis. Circumflex 50% stenosis. Right coronary artery stent was patent. Distal RCA 50% stenosis. Following normalization, an FFR wire was advanced across the lesion in the left main into the left anterior descending artery. Intracoronary adenosine was administered. Minimal FFR 0.775, IFR 0.78. The lesion was found to be significant and the patient was referred for coronary bypass. Right groin repaired using Vascade. The patient discharged home same day. MD PAPITO Kyle/MODL /[id number]
--- NOTE | 2018-12-12 08:24 | Operative Report ---
DATE OF PROCEDURE: 11/13/2018 SURGEON: Samuel Rueda MD INDICATIONS: Coronary artery disease, abnormal stress test. PROCEDURES PERFORMED: 1. Left heart catheterization, selective coronary angiography. 2. Fractional flow reserve measurement across the left anterior descending artery. COMPLICATIONS: None. RECOMMENDATIONS: Coronary artery bypass surgery. DESCRIPTION OF PROCEDURE: Access obtained in the right femoral artery. Left main 70% stenosis with FFR of 0.75, IFR 0.78, 50% in-stent restenosis, 80% stenosis of the circumflex, patent stent in the right coronary artery. Distal right coronary artery 50% stenosis. Fractional flow reserve with intravenous adenosine was significant as described above. The patient was discharged home following closure of the right groin Vascade with instructions of followup for coronary artery bypass surgery. Samuel Rueda MD [facility]/MODL /[id number]
== END | disposition home or self-care (01) ==
LOC: CATH LAB 10:33
PROVIDERS: ATTEND Internal Medicine Interventional Cardiology
DX: I25.119 Atherosclerotic heart disease of native coronary artery with unspecified angina pectoris (principal); R94.39 Abnormal result of other cardiovascular function study; Z95.5 Presence of coronary angioplasty implant and graft; Z01.812 Encounter for preprocedural laboratory examination
CPT/HCPCS: 36415; 80053; 85025; 85610; 85730; 93454; 93571; C1760; C1769; C1887; J0153; J1327; J1644; J2001; J2250; J7030; Q9967

== ENCOUNTER → 2019-02-10 | Outpatient (CLI) | payer MEDICARE ==
[~2019-02-10] MED LIST changes: -ADENOSINE 3MG/1ML 30ML VIAL ONE; -ALPRAZOLAM 0.5 MG TAB ONE; -DIPHENHYDRAMINE HCL 25 MG CAP ONE; -EPTIFIBATIDE 10 ML ONE; -FENTANYL CITRATE/PF 100MCG/2 ML INJ ONE; -HEPARIN SOD (PORCINE) 1000 UNIT/ML 30ML ONE; -HEPARIN SOD/SOD CHLORIDE 2,000 ML ONE; -IOPAMIDOL 370 MG/ML 200 ML INFUS..BTL INJ ONE; -LIDOCAINE HCL 2% LOCAL 20 ML VIAL ONE; -MIDAZOLAM HCL 2 MG/2 ML VIAL ONE; -SODIUM CHLORIDE 0.9% 1000ML 1,000 ML ONE; -SODIUM CHLORIDE 0.9% 50ML 50 ML ONE; -TICAGRELOR 90 MG TABLET ONE
--- NOTE | 2019-02-10 10:48 | Diagnostic Imaging Report ---
EXAMINATION: CHEST 2 VIEWS INDICATION: Renal malignancy COMPARISON: None FINDINGS: TUBES and LINES: None. LUNGS: The lung volumes are normal. No focal consolidation or pulmonary edema. PLEURA: No pleural effusion or pneumothorax. HEART AND MEDIASTINUM: The cardiomediastinal silhouette is normal in size and contour. BONES AND SOFT TISSUES: No acute fracture or dislocation. UPPER ABDOMEN: No free air under the diaphragm. IMPRESSION: No focal pneumonia or pulmonary edema. No radiographically visible pulmonary nodule. Note is made that plain film is not sensitive for small pulmonary nodules. If there is clinical suspicion for metastatic disease, CT offers superior sensitivity. Signed by: Bindu Jaquez MD on 02/10/2019 10:44 AM
--- NOTE | 2019-02-10 12:40 | Diagnostic Imaging Report ---
EXAM: Renal Ultrasound INDICATION: ^[id number] ^1043 ^MALIGNANT NEOPLASM OF KIDNEY COMPARISON: None TECHNIQUE: Transverse and longitudinal images of the kidneys and bladder were obtained. FINDINGS: Right Kidney: Status post right nephrectomy. Left Kidney: Length: 10.5 cm Appearance: Lobulated surface contour. Normal echogenicity. Collecting system: No hydronephrosis Stones: None Cyst/Mass: None Bladder: No bladder calculus. Irregularity of posterior bladder wall without focal mass. Ureteral stent visualized. Left ureteral jet visualized. Prostate: Enlarged prostate with estimated volume of 161.59 cc IMPRESSION: Status post right nephrectomy. No left hydronephrosis or renal calculi. Irregularity of posterior bladder wall without focal mass. Ureteral stent visualized. Prostatomegaly. Signed by: Bindu Jaquez MD on 02/10/2019 12:36 PM
== END ==
LOC: US 09:51
PROVIDERS: ATTEND Urology
DX: C64.1 Malignant neoplasm of right kidney, except renal pelvis (principal)
CPT/HCPCS: 71046; 76770

== ENCOUNTER 2019-05-26 12:39 | Inpatient (IN) | payer MEDICARE ==
[~2019-05-26] VITALS: Ht 182.9 cm; Wt 84.8 kg
[~2019-05-26 12:39] MED LIST changes: +CLOPIDOGREL75 MG PO
[2019-05-26] MEDS ORDERED: SODIUM CHLORIDE 0.9% 1000ML 1,000 ML IV STA (14:45)
[2019-05-26] MEDS ORDERED: MORPHINE SULFATE 2 MG/ML SYR 1ML IV PRN (15:00)
[2019-05-26] MEDS ORDERED: ONDANSETRON HCL INJ 2MG/ML 2ML 2 MG/ML VIAL IV PRN (15:00)
[2019-05-26] MEDS ORDERED: ACETAMINOPHEN/CODEINE 300MG - 30MG TAB PO PRN (15:30)
[2019-05-26 15:35] LABS: BASOPHILS # (AUTO) 0.1 (0.0-0.1); BASOPHILS % 1.1 % (0.0-1.0); EOSINOPHILS # (AUTO) 0.5 (0.0-0.4); EOSINOPHILS % 5.1 % (0.0-6.0); HEMATOCRIT 26.2 % (38.2-49.6); HEMOGLOBIN 8.7 g/dL (14.0-18.0); LYMPHOCYTES # (AUTO) 2.2 (1.0-3.2); LYMPHOCYTES % 22.3 % (18.0-39.1); MEAN CORPUSCULAR HEMOGLOBIN 30.3 pg (28-32); MEAN CORPUSCULAR HGB CONC 33.2 g/dL (31-35); MEAN CORPUSCULAR VOLUME 91.3 fL (81-99); MONOCYTES # (AUTO) 0.6 (0.2-0.8); MONOCYTES % 6.6 % (4.4-11.3); NEUTROPHILS # (AUTO) 6.2 (2.1-6.9); NEUTROPHILS % 63.9 % (38.7-80.0); PLATELET COUNT 440 x10e3/uL (140-360); RED BLOOD COUNT 2.87 x10e6/uL (4.3-5.7); RED CELL DISTRIBUTION WIDTH 14.4 % (11.7-14.4)
[2019-05-26 15:37] LABS: BILIRUBIN,URINE LARGE (NEGATIVE); CLARITY,URINE TURBID (CLEAR); COLOR,URINE RED (YELLOW); KETONES,URINE 1+ (NEGATIVE); LEUKOCYTE ESTERASE ,URINE LARGE (NEGATIVE); NITRITE,URINE POSITIVE (NEGATIVE); URINE UROBILINOGEN 4 mg/dL (0.2 - 1)
[2019-05-26 15:38] LABS: PROTEIN,URINE DIPSTICK 2+ (NEGATIVE)
[2019-05-26 15:44] LABS: INR 0.92; PROTHROMBIN TIME 12.9 seconds (11.9-14.5)
[2019-05-26 15:45] LABS: PARTIAL THROMBOPLASTIN TIME 30.6 seconds (23.8-35.5)
[2019-05-26 15:52] LABS: ALBUMIN 3.7 g/dL (3.5-5.0); ALBUMIN/GLOBULIN RATIO 1.1 (0.8-2.0); ANION GAP 18.5 mmol/L (8-16); CALCIUM 8.6 mg/dL (8.4-10.2); CREATININE, SERUM 8.15 mg/dL (0.72-1.25); MAGNESIUM 2.3 MG/DL (1.3-2.1); POTASSIUM 3.5 mmol/L (3.5-5.1)
[2019-05-26 15:58] LABS: CREATINE KINASE MB 1.3 ng/mL (0-5.0)
[2019-05-26 15:58] LABS: BACTERIA,URINE MANY /HPF; EPITHELIAL CELLS,URINE RARE /LPF; RBC,URINE >50 /HPF (0-5)
--- NOTE | 2019-05-26 17:00 | Diagnostic Imaging Report ---
EXAM: CT Abdomen and Pelvis WITHOUT intravenous contrast INDICATION: Hematuria COMPARISON: None. TECHNIQUE: Abdomen and pelvis were scanned utilizing a multidetector helical scanner from the lung base to the pubic symphysis without administration of IV contrast. Coronal and sagittal reformations were obtained. IV CONTRAST: None ORAL CONTRAST: Water COMPLICATIONS: None RADIATION DOSE: Total DLP: 369.2 mGy*cm Dose modulation, iterative reconstruction, and/or weight based adjustment of the mA/kV was utilized to reduce the radiation dose to as low as reasonably achievable. FINDINGS: LOWER THORAX: No focal consolidation. Scattered atherosclerotic calcifications of the coronary arteries. Status post coronary stenting. HEPATOBILIARY: No focal hepatic lesions. No biliary ductal dilatation. The gallbladder appears unremarkable. SPLEEN: No splenomegaly PANCREAS: No focal masses or ductal dilatation. ADRENALS: No adrenal nodules. KIDNEYS/URETERS: Status post right nephrectomy. No hydronephrosis or renal calculi. There is air in the left renal collecting system. Left internal nephroureteral stent in place with proximal and distal loop in expected position. PELVIC ORGANS/BLADDER: Walker catheter terminates in the bladder. There is a large amount of hyperdense material with interspersed air within the bladder consistent with clots status post instrumentation. Prostatomegaly to 7.3 cm. PERITONEUM / RETROPERITONEUM: No free air or free fluid. LYMPH NODES: No lymphadenopathy. VESSELS: Diffuse atherosclerotic calcifications of the nonaneurysmal abdominal aorta and major branches. GI TRACT: Severe diverticulosis. No CT evidence of diverticulitis. No abnormal bowel wall thickening. No bowel obstruction. Normal appendix. BONES AND SOFT TISSUES: No acute osseous injury. No suspicious lytic or blastic lesions. Degenerative changes of the lower lumbar spine. IMPRESSION: Large amount of hyperdense material with interspersed air in the bladder, consistent with clot in the setting of recent instrumentation. Walker catheter in the bladder. Left internal nephroureteral stent in place. No hydronephrosis. Status post right nephrectomy. Prostatomegaly. Diverticulosis without CT evidence of diverticulitis. Signed by: Bindu Jaquez MD on 05/26/2019 4:56 PM
--- NOTE | 2019-05-26 17:01 | Diagnostic Imaging Report ---
EXAMINATION: CHEST SINGLE (PORTABLE) INDICATION: Hematuria COMPARISON: Chest radiograph of 05/20/2019 FINDINGS: LINES/TUBES:Right chest pacer unchanged. LUNGS:The lungs are well-inflated. No focal consolidation or pulmonary edema. PLEURA:No pleural effusion or pneumothorax. MEDIASTINUM:The cardiomediastinal silhouette appears normal in size and shape. BONES/SOFT TISSUES:No acute osseous injury. ABDOMEN:No free air under the diaphragm. IMPRESSION: No focal pneumonia or pulmonary edema. Signed by: Bindu Jaquez MD on 05/26/2019 4:58 PM
[2019-05-26] MEDS: FAMOTIDINE 20 MG/2 ML VIAL IV SCH (17:56)
[2019-05-26] MEDS: MEROPENEM 500MG/ NS 50ML 50 ML IV SCH (17:56)
--- NOTE | 2019-05-26 21:34 | NUR ---
Called to give report at this time. Was told the nurse, Ashley, was transporting a pt and would call back. Pt in NAD.
[2019-05-26 22:10] VITALS: BP 158/79
[2019-05-26 22:37] VITALS: BP 158/79
--- NOTE | 2019-05-26 22:45 | Consultation ---
DATE OF CONSULTATION: 05/26/2019 Renal Consult This is a 74-year-old male who missed his dialysis on Saturday secondary to high hematuria. The patient was admitted recently and was diagnosed with the same complaint, hematuria. The patient underwent cystoscopy and had a dilatation of his ureteral stent and a cystogram was done. He also was evaluated by Cardiology. PAST MEDICAL HISTORY: Include; 1. ESRD, on hemodialysis, Saturday and Saturday. 2. Hypertension. 3. Hyperlipidemia. 4. Coronary artery disease with history of 3 stents, on Plavix. 5. Previous history of hematuria. PAST SURGICAL HISTORY: Includes; 1. Coronary artery stent placement. 2. Prostate surgery. 3. Nephrectomy in the past. FAMILY HISTORY: Negative. SOCIAL HISTORY: Quit smoking 50 years ago. No drugs. REVIEW OF SYSTEMS: No nausea, vomiting, constipation, diarrhea. No shortness of breath. No chest pain. Positive blood in the urine. No blood in the stool. No enlarged lymph nodes. No skin changes. Basically, all review of system only positive pertinent are as above. PHYSICAL EXAMINATION: GENERAL: Alert, following commands. HEENT: Pupils equal, reactive to light and accommodation. NECK: No JVD. No bruit. LUNGS: Rhonchi. No rales. HEART: Regular rate and rhythm. No S3. No S4. ABDOMEN: Nontender and nondistended. No hepatomegaly or splenomegaly. EXTREMITIES: No clubbing. No cyanosis. No edema. NEUROLOGIC: Cranial nerves 2 through 12 are grossly intact. Sensation intact. Motor intact. SKIN: No lesions. Blood pressure 155/81. LABORATORY DATA: White count 9.6, hemoglobin 8.7, hematocrit 26.2. Chemistry pending. Urine positive blood. IMAGING: None currently. ASSESSMENT AND PLAN: 1. End-stage renal disease, on hemodialysis, Saturday and Saturday. We will dialyze the patient today and then we will have him back on his schedule on Saturday while awaiting his BMP. 2. Anemia of chronic disease plus secondary to hematuria. We will have the patient on Epogen 10,000 every treatment or subcu depending on the hospital protocol. 3. Hematuria. Urology will be reconsulted. He is status post cystoscopy and dilatation. 4. Coronary artery disease, status post stent. 5. History of anticoagulation. Current home medications are being reviewed. 6. Hypertension, currently with stable blood pressure. In short, the patient be admitted, Urology was consulted. He was last seen by Cardiology on his last admission. We will monitor his blood pressure, glucose, and his electrolytes. We will have him dialyzed today and then next dialysis will be on Saturday. Joey Salcedo MD MA/MARGARET /[id number]
[2019-05-27] VITALS (8 sets, daily range): BP systolic 105–144; BP diastolic 54–66
--- NOTE | 2019-05-27 03:59 | NUR ---
RECEIVED REPORT FROM ED. PT IS A/A/OX4 AND DENIES ANY PAIN. RESPIRATION IS EVEN AND UNLABORED. +BOWEL SOUNDS NOTED, PT IS CONTINENT FOR BM. PT HAS AN INDWELLING JOSUE CATHETER TO GRAVITY WITH DARK RED BLOOD NOTED. NO SWELLING TO EXTREMITIES, ALL PULSES ARE PALPABLE, PT HAS A STEADY GAIT. PT HAS A LFA AV FISTULA WITH A +BRUIT AND THRILL NOTED. RFA 20G IS PATENT WITHOUT REDNESS/SWELLING. PT WAS HUNGRY AND FOOD AND WATER IS GIVEN. NO DIFFICULTY SWALLOWING. WILL CONTINUE TO MONITOR.
--- NOTE | 2019-05-27 06:12 | NUR ---
CALLED AND LEFT MESSAGE FOR CONSULT TO DR. HUMPHRIES ANSWERING SERVICE. CALLED AND INFORMED DR. German NARAYANAN OF CONSULT. PER MD ORDERS, CALL AND ARRANGE FOR THE PT TO BE DIALYZED ON 05/27 AND 05/29. CALLED [facility] AND SCHEDULED HEMODIALYSIS FOR THE PATIENT.
[2019-05-27 06:38] LABS: BASOPHILS # (AUTO) 0.1 (0.0-0.1); BASOPHILS % 0.7 % (0.0-1.0); EOSINOPHILS # (AUTO) 0.3 (0.0-0.4); EOSINOPHILS % 4.6 % (0.0-6.0); LYMPHOCYTES # (AUTO) 1.5 (1.0-3.2); LYMPHOCYTES % 21.3 % (18.0-39.1); MEAN CORPUSCULAR HEMOGLOBIN 30.8 pg (28-32); MEAN CORPUSCULAR HGB CONC 33.5 g/dL (31-35); MEAN CORPUSCULAR VOLUME 92.1 fL (81-99); MONOCYTES # (AUTO) 0.5 (0.2-0.8); MONOCYTES % 7.8 % (4.4-11.3); NEUTROPHILS # (AUTO) 4.4 (2.1-6.9); NEUTROPHILS % 64.4 % (38.7-80.0); PLATELET COUNT 309 x10e3/uL (140-360); RED BLOOD COUNT 2.14 x10e6/uL (4.3-5.7); RED CELL DISTRIBUTION WIDTH 14.4 % (11.7-14.4)
[2019-05-27 06:41] LABS: HEMATOCRIT 19.7 % (38.2-49.6); HEMOGLOBIN 6.6 g/dL (14.0-18.0)
[2019-05-27 06:51] LABS: ALBUMIN 2.9 g/dL (3.5-5.0); ALBUMIN/GLOBULIN RATIO 1.2 (0.8-2.0); ANION GAP 15.7 mmol/L (8-16); CALCIUM 7.9 mg/dL (8.4-10.2); CREATININE, SERUM 8.16 mg/dL (0.72-1.25); MAGNESIUM 2.2 MG/DL (1.3-2.1); PHOSPHORUS 6.5 MG/DL (2.3-4.7); POTASSIUM 3.7 mmol/L (3.5-5.1)
[2019-05-27 07:14] LABS: CREATINE KINASE MB 0.9 ng/mL (0-5.0)
[2019-05-27] MEDS: PANTOPRAZOLE SOD 40 MG TABEC PO SCH (07:30)
[2019-05-27] MEDS ORDERED: SODIUM CHLORIDE 0.9% 250ML 250 ML IV ONE ×2 (07:35→14:30)
--- NOTE | 2019-05-27 07:40 | NUR ---
PATIENT IN BED RESTING WITH HEAD OF BED ELEVATED, NO DISTRESS NOTED. REQUESTED AND RECEIVED A CUP OF COFFEE. JOSUE CATHETER IN PLACE DRAINING BLOODY URINE. BED IN LOWER POSITION, CALL LIGHT AT REACH.
[2019-05-27] MEDS: MEROPENEM 500MG/ NS 50ML 50 ML IV SCH ×4 (08:40→23:31)
[2019-05-27] MEDS ORDERED: NON-FORMULARY MEDICATION (Levocetirizine Dihydrochloride 5 MG) PO SCH (09:00)
[2019-05-27] MEDS: LORATADINE 10 MG TAB PO SCH (09:00)
[2019-05-27] MEDS: (Methenamine Hippurate 1 GM) PO SCH (09:00)
[2019-05-27] MEDS ORDERED: NON-FORMULARY MEDICATION (Pravastatin Sodium 40 MG) PO SCH (09:00)
[2019-05-27] MEDS: PRAVASTATIN 20 MG TAB PO SCH (09:00)
[2019-05-27] MEDS ORDERED: SODIUM CHLORIDE 0.9% 250ML 250 ML ONE (09:18)
[2019-05-27] MEDS: AMLODIPINE BESYLATE 5 MG TAB PO SCH (09:32)
[2019-05-27] MEDS: FAMOTIDINE 20 MG/2 ML VIAL IV SCH ×2 (09:32→17:00)
[2019-05-27] MEDS: CLOPIDOGREL BISULFATE 75 MG TAB PO SCH (09:32)
--- NOTE | 2019-05-27 10:50 | NUR ---
PATIENT OUT OF BED TO CHAIR WATCHING TV. JOSUE CATHETER WITH BLOODY URINE. BLOOD AVAILABLE FOR TRANSFUSION WITH DIALYSIS, PATIENT STATED THAT HE WOULD LIKE DIALYSIS TO BE DONE AFTER LUNCH. STRATEGY ANALYST IN TO SEE PATIENT, NOTIFIED OF PATIENT REQUEST. MD TALKED TO PATIENT AND HE AGREED TO HAVE DIALYSIS NOW. DIALYSIS NURSE NOTIFIED. CALL LIGHT AT REACH.
[2019-05-27] MEDS ORDERED: SODIUM CHLORIDE 0.9% 1000ML 2,000 ML IV PRN (14:45)
--- NOTE | 2019-05-27 15:48 | NUR ---
BED SIDE HEMODIALYSIS TREATMENT STARTED. PATIENT TO RECEIVE 3 UNITS OF BLOOD WITH DIALYSIS. FIRST UNIT GIVEN TO DIALYSIS NURSE, IN PROGRESS AT THIS TIME. WILL CLOSELY MONITOR.
[2019-05-27] MEDS ORDERED: EPOETIN ALFA 10000 UNIT/ML VIAL SC SCH (16:00)
--- NOTE | 2019-05-27 18:34 | NUR ---
BLOOD TRANSFUSION X 3 UNITS COMPLETED AT THIS TIME BY DIALYSIS NURSE, NO ADVERSE REACTION NOTED. WILL CLOSELY MONITOR.
--- NOTE | 2019-05-27 18:41 | NUR ---
Nutrition Screen Note RD Recommendation for Physician: -Recommend renal diet Plan of Care: RD following, monitoring for tolerance and adequacy Nutrition reason for involvement: Diagnosis - ESRD Primary Diagnose(s): ESRD on dialysis, hematuria, and weakness PMH: ESRD on HD, HTN, HLD, CAD, hematuria, prostate surgery, nephrectomy Ht: 72 in Wt: 187 lb BMI: 25.35 kg/m2 IBW:[address] Assessment: (05/27/19) Chart reviewed. Labs and meds reviewed. Pt is a 74 year old male admitted with ESRD on dialysis, hematuria, and weakness. Pt stated he has a good appetite and has been eating all of his meals. Pt reported he used to weigh 227 lbs 14 months ago. Pt currently has a wt of 187 lbs in chart. Pt attributes wt loss due to decreased appetite and altered taste changes when he started dialysis. If accurate, this would be an 18% wt loss in 14 months. No N/V/D/C reported and no chewing/swallowing issues. Will continue to monitor. Current Diet: Cardiac Diet Malnutrition Evaluation (05/27/19) The patient does not meet criteria for a specified degree of malnutrition at this time. Will re-evaluate at follow-up as appropriate. Diet Education Needs Assessment: Pt was not interested in diet education. Nutrition Care Level: Low Signed: Carmen Stewart, RD, LD
--- NOTE | 2019-05-27 19:30 | NUR ---
RECEIVED REPORT FROM THE DAY SHIFT NURSE. PT IS IN BED A/A/OX4 AND DENIES ANY PAIN. RESPIRATION IS EVEN AND UNLABORED. PT HAS 20G RFA SL THAT IS PATENT WITHOUT REDNESS AND SWELLING. TELE #17 AND IS PACED. JOSUE CATHETER TO GRAVITY WITH HEMATURIA NOTED. PT HAS CONTINUOUS BLADDER IRRIGATION INFUSING. PT HAS A LFA FISTULA WITH A +BRUIT AND THRILL . ALL PULSES ARE PALPABLE , NO EDEMA NOTED WILL CONTINUE TO MONITOR.
[2019-05-27 20:58] LABS: BASOPHILS # (AUTO) 0.1 (0.0-0.1); BASOPHILS % 1.2 % (0.0-1.0); EOSINOPHILS # (AUTO) 0.3 (0.0-0.4); HEMATOCRIT 28.4 % (38.2-49.6); HEMOGLOBIN 9.8 g/dL (14.0-18.0); LYMPHOCYTES # (AUTO) 1.6 (1.0-3.2); LYMPHOCYTES % 21.4 % (18.0-39.1); MEAN CORPUSCULAR HEMOGLOBIN 30.3 pg (28-32); MEAN CORPUSCULAR HGB CONC 34.5 g/dL (31-35); MEAN CORPUSCULAR VOLUME 87.9 fL (81-99); MONOCYTES # (AUTO) 0.6 (0.2-0.8); MONOCYTES % 8.2 % (4.4-11.3); NEUTROPHILS # (AUTO) 4.7 (2.1-6.9); NEUTROPHILS % 63.8 % (38.7-80.0); PLATELET COUNT 311 x10e3/uL (140-360); RED BLOOD COUNT 3.23 x10e6/uL (4.3-5.7); RED CELL DISTRIBUTION WIDTH 14.6 % (11.7-14.4)
--- NOTE | 2019-05-27 21:00 | NUR ---
SCHEDULED MEDICATION IS GIVEN AND TOLERATED WELL. WILL CONTINUE TO MONITOR.
[2019-05-27] MEDS: CARVEDILOL 12.5 MG TAB PO SCH (21:50)
[2019-05-27] MEDS ORDERED: BISACODYL 10 MG SUPP PR PRN (23:15)
[2019-05-27] MEDS ORDERED: MAGNESIUM HYDROXIDE 30 ML UDC PO PRN (23:15)
[2019-05-28] VITALS (7 sets, daily range): BP systolic 113–160; BP diastolic 55–66
--- NOTE | 2019-05-28 00:54 | Consultation ---
DATE OF CONSULTATION: 05/27/2019 Cardiology Consultation REASON FOR CONSULT: Coronary artery disease. CHIEF COMPLAINT: Hematuria. HISTORY OF PRESENT ILLNESS: The patient is a 74-year-old man, known to our service with history of extensive CAD, status post PCI to his left main earlier this year, who unfortunately has been having recurrent hematuria with no clear cause, presents once again after being discharged recently with daija hematuria. Denies any chest pain or shortness of breath. He has been compliant with his aspirin and Plavix. REVIEW OF SYSTEMS: As per HPI, otherwise negative. SOCIAL HISTORY: He does not smoke, drink, or abuse drugs. FAMILY HISTORY: Noncontributory. OUTPATIENT MEDICATIONS: Reviewed. ALLERGIES: REVIEWED. PHYSICAL EXAMINATION: VITAL SIGNS: Temperature afebrile, pulse 65, respiratory rate 14, blood pressure 123/60, saturating 100% on room air. GENERAL: Elderly male, in no acute distress. CARDIOVASCULAR: Regular rate and rhythm. No murmurs, rubs, or gallops. LUNGS: Clear to auscultation bilaterally. ABDOMEN: Soft, nontender, nondistended. NEURO AND PSYCH: Alert and oriented to person, place, and time. Normal affect. Daija hematuria with dark red blood seen in the Walker catheter. INPATIENT MEDICATIONS: Reviewed. TELEMETRY DATA: Reviewed, shows normal sinus rhythm. LABORATORY DATA: Reviewed. ASSESSMENT AND PLAN: 1. Coronary artery disease, status post left main PCI earlier this year. 2. Peripheral arterial disease. 3. Hypertension. 4. Hyperlipidemia. 5. End-stage renal disease, on hemodialysis. 6. Hematuria. RECOMMENDATIONS: Unfortunately given recent PCI to the left main, I do not recommend stopping dual antiplatelet therapy given high risk of stent thrombosis and massive LA and potentially resulting from this. Continue aspirin and Plavix. Blood pressure is adequately controlled. We will defer treatment of hematuria to Urology. Thank you for this consult. We will continue to follow. MD BERTA Chan/MARGARET /[id number]
[2019-05-28 06:47] LABS: BASOPHILS # (AUTO) 0.1 (0.0-0.1); EOSINOPHILS # (AUTO) 0.3 (0.0-0.4); HEMATOCRIT 25.5 % (38.2-49.6); HEMOGLOBIN 8.6 g/dL (14.0-18.0); LYMPHOCYTES # (AUTO) 1.4 (1.0-3.2); LYMPHOCYTES % 20.7 % (18.0-39.1); MEAN CORPUSCULAR HEMOGLOBIN 30.2 pg (28-32); MEAN CORPUSCULAR HGB CONC 33.7 g/dL (31-35); MEAN CORPUSCULAR VOLUME 89.5 fL (81-99); MONOCYTES # (AUTO) 0.7 (0.2-0.8); MONOCYTES % 10.6 % (4.4-11.3); NEUTROPHILS # (AUTO) 4.4 (2.1-6.9); NEUTROPHILS % 62.7 % (38.7-80.0); PLATELET COUNT 275 x10e3/uL (140-360); RED BLOOD COUNT 2.85 x10e6/uL (4.3-5.7)
[2019-05-28 06:57] LABS: ANION GAP 13.6 mmol/L (8-16); CALCIUM 7.9 mg/dL (8.4-10.2); CREATININE, SERUM 5.06 mg/dL (0.72-1.25); POTASSIUM 3.6 mmol/L (3.5-5.1)
[2019-05-28] MEDS: PANTOPRAZOLE SOD 40 MG TABEC PO SCH (07:30)
[2019-05-28] MEDS: MEROPENEM 500MG/ NS 50ML 50 ML IV SCH ×2 (08:00→16:40)
[2019-05-28] MEDS: (Methenamine Hippurate 1 GM) PO SCH (09:00)
[2019-05-28] MEDS: LORATADINE 10 MG TAB PO SCH (09:00)
[2019-05-28] MEDS: CLOPIDOGREL BISULFATE 75 MG TAB PO SCH (09:00)
[2019-05-28] MEDS: FAMOTIDINE 20 MG/2 ML VIAL IV SCH ×2 (09:00→17:00)
[2019-05-28] MEDS: AMLODIPINE BESYLATE 5 MG TAB PO SCH (09:59)
[2019-05-28] MEDS: PRAVASTATIN 20 MG TAB PO SCH (09:59)
--- NOTE | 2019-05-28 11:48 | NUR ---
PATIENT AMBULATING BY SELF IN ROOM. CONTINUOUS BLADDER IRRIGATION IN PROGRESS. CALL LIGHT AT EASY REACH.
--- NOTE | 2019-05-28 15:06 | NUR ---
SPOKE WITH DR THORNTON REGARDING FLUID CLEARING UP FROM CONTINUOUS BLADDER IRRIGATION. ORDER RECEIVED TO STOP IT AT THIS TIME AND START NEEDED.
--- NOTE | 2019-05-28 20:15 | NUR ---
RECEIVED PT SITTING ON THE CHAIR .PT HAS F/C DRAINING SLIGHT RED COLORED URINE .DENIES PAIN .CALL LIGHT WITH IN REACH .CONTINUE TO MONITOR
[2019-05-28] MEDS: CARVEDILOL 12.5 MG TAB PO SCH (22:37)
[2019-05-29] VITALS (7 sets, daily range): BP systolic 107–161; BP diastolic 58–76
[2019-05-29 06:18] LABS: BASOPHILS # (AUTO) 0.1 (0.0-0.1); BASOPHILS % 1.1 % (0.0-1.0); EOSINOPHILS # (AUTO) 0.4 (0.0-0.4); EOSINOPHILS % 6.4 % (0.0-6.0); HEMATOCRIT 26.5 % (38.2-49.6); HEMOGLOBIN 8.9 g/dL (14.0-18.0); LYMPHOCYTES # (AUTO) 1.8 (1.0-3.2); LYMPHOCYTES % 28.1 % (18.0-39.1); MEAN CORPUSCULAR HEMOGLOBIN 30.4 pg (28-32); MEAN CORPUSCULAR HGB CONC 33.6 g/dL (31-35); MEAN CORPUSCULAR VOLUME 90.4 fL (81-99); MONOCYTES # (AUTO) 0.7 (0.2-0.8); MONOCYTES % 10.4 % (4.4-11.3); NEUTROPHILS # (AUTO) 3.4 (2.1-6.9); NEUTROPHILS % 52.6 % (38.7-80.0); PLATELET COUNT 287 x10e3/uL (140-360); RED BLOOD COUNT 2.93 x10e6/uL (4.3-5.7); RED CELL DISTRIBUTION WIDTH 14.9 % (11.7-14.4)
--- NOTE | 2019-05-29 07:22 | NUR ---
PT RESTED DURING THE NIGHT .IRRIGATED THE BLADER WITH 3 BAGS .AND URINE IS CLEAR .BEDSIDE GIVEN TO THE ONCOMING NURSE .
--- NOTE | 2019-05-29 07:30 | NUR ---
PT UP IN BED ,JOSUE TO BSD PINK URINE,DENIES PAIN.
[2019-05-29] MEDS: AMLODIPINE BESYLATE 5 MG TAB PO SCH (09:00)
[2019-05-29] MEDS: PANTOPRAZOLE SOD 40 MG TABEC PO SCH (09:00)
[2019-05-29] MEDS: LORATADINE 10 MG TAB PO SCH (09:00)
[2019-05-29] MEDS: PRAVASTATIN 20 MG TAB PO SCH (09:00)
[2019-05-29] MEDS: CLOPIDOGREL BISULFATE 75 MG TAB PO SCH (09:00)
[2019-05-29] MEDS: MEROPENEM 500MG/ NS 50ML 50 ML IV SCH ×4 (09:00→23:38)
[2019-05-29] MEDS: (Methenamine Hippurate 1 GM) PO SCH (09:00)
[2019-05-29 09:56] LABS: ANION GAP 12.6 mmol/L (8-16); CALCIUM 8.3 mg/dL (8.4-10.2); CREATININE, SERUM 6.41 mg/dL (0.72-1.25); POTASSIUM 3.6 mmol/L (3.5-5.1)
[2019-05-29] MEDS ORDERED: ONDANSETRON HCL 4 MG ORAL DISINTEGRATING TAB PO PRN (10:15)
[2019-05-29] MEDS ORDERED: SODIUM CHLORIDE 0.9% 250ML 500 ML IV PRN (10:30)
[2019-05-29] MEDS ORDERED: EPOETIN ALFA 10000 UNIT/ML VIAL SC SCH (11:00)
[2019-05-29] MEDS: FAMOTIDINE 20 MG TAB PO SCH (17:52)
--- NOTE | 2019-05-29 17:52 | NUR ---
PT UP IN CHAIR,DENIES PAIN,NO DISTRESS NOTED.JOSUE TO CONTINOUS IRRIGATION
--- NOTE | 2019-05-29 19:13 | NUR ---
Received bedside report from day nurse. Patient sitting up on side of bed, no s/s of distress or c/o pain at this time. All safety measures in place. Will continue to monitor.
[2019-05-29] MEDS: CARVEDILOL 12.5 MG TAB PO SCH (20:19)
[2019-05-30] VITALS (8 sets, daily range): BP systolic 117–160; BP diastolic 56–67
[2019-05-30 06:18] LABS: BASOPHILS # (AUTO) 0.1 (0.0-0.1); BASOPHILS % 1.2 % (0.0-1.0); EOSINOPHILS # (AUTO) 0.4 (0.0-0.4); EOSINOPHILS % 5.9 % (0.0-6.0); HEMATOCRIT 28.9 % (38.2-49.6); HEMOGLOBIN 9.6 g/dL (14.0-18.0); LYMPHOCYTES # (AUTO) 1.8 (1.0-3.2); LYMPHOCYTES % 26.8 % (18.0-39.1); MEAN CORPUSCULAR HEMOGLOBIN 30.2 pg (28-32); MEAN CORPUSCULAR HGB CONC 33.2 g/dL (31-35); MEAN CORPUSCULAR VOLUME 90.9 fL (81-99); MONOCYTES # (AUTO) 0.7 (0.2-0.8); MONOCYTES % 10.8 % (4.4-11.3); NEUTROPHILS # (AUTO) 3.7 (2.1-6.9); NEUTROPHILS % 54.3 % (38.7-80.0); PLATELET COUNT 279 x10e3/uL (140-360); RED BLOOD COUNT 3.18 x10e6/uL (4.3-5.7); RED CELL DISTRIBUTION WIDTH 14.7 % (11.7-14.4)
--- NOTE | 2019-05-30 06:58 | NUR ---
Gave bedside report to day nurse. Patient resting in bed, no s/s of distress or c/o pain at this time. All safety measures in place.
--- NOTE | 2019-05-30 07:35 | NUR ---
PT UP IN CHAIR ,DENIES PAIN ,JOSUE TO CONTINOUS IRRIGATION,
[2019-05-30] MEDS: PANTOPRAZOLE SOD 40 MG TABEC PO SCH (08:30)
[2019-05-30] MEDS: MEROPENEM 500MG/ NS 50ML 50 ML IV SCH ×3 (08:30→23:44)
[2019-05-30] MEDS: AMLODIPINE BESYLATE 5 MG TAB PO SCH (09:00)
[2019-05-30] MEDS: CLOPIDOGREL BISULFATE 75 MG TAB PO SCH (09:00)
[2019-05-30] MEDS: (Methenamine Hippurate 1 GM) PO SCH (09:00)
[2019-05-30] MEDS: PRAVASTATIN 20 MG TAB PO SCH (09:00)
[2019-05-30] MEDS: FAMOTIDINE 20 MG TAB PO SCH ×2 (09:00→17:00)
[2019-05-30] MEDS: LORATADINE 10 MG TAB PO SCH (09:00)
--- NOTE | 2019-05-30 12:30 | NUR ---
JOSUE TO IRRIGATION ,2 BLOOD CLOTS NOTED,PINK TINGED URINE.
--- NOTE | 2019-05-30 15:34 | Progress Note ---
DATE: 05/30/2019 Cardiology Progress Note SUBJECTIVE: No major events overnight. Continues to be on bladder irrigation. OBJECTIVE: VITAL SIGNS: Temperature afebrile, pulse 77, respiratory rate 18, blood pressure 160/67, satting 99% on room air. GENERAL: Elderly man, in no acute distress. CARDIOVASCULAR: Regular rate and rhythm. No murmurs, rubs, or gallops. LUNGS: Clear to auscultation bilaterally. ABDOMEN: Soft, nontender, nondistended. NEURO AND PSYCH: Alert and oriented to person, place, and time. Normal affect. INPATIENT MEDICATIONS: Reviewed. LABORATORY DATA: Reviewed. TELEMETRY DATA: Reviewed, shows paced rhythm. ASSESSMENT: 1. Coronary artery disease, status post recent left main PCI. 2. Peripheral arterial disease. 3. Hypertension. 4. Hyperlipidemia. 5. End-stage renal disease, on hemodialysis. 6. Hematuria, recurrent. RECOMMENDATIONS: Continue aspirin and Plavix and other cardiovascular medications. We will defer treatment of hematuria to Urology. Thank you for this consult. We will continue to follow. MD BERTA Chan/MARGARET /[id number]
--- NOTE | 2019-05-30 18:42 | NUR ---
PT UP IN CHAIR NO DISTRESS NOTED DENIES PAIN
--- NOTE | 2019-05-30 19:27 | NUR ---
Received bedside report from day nurse. Patient sitting in chair, alert and oriented, no s/s of distress or c/o pain at this time. All safety measures in place. Will continue to monitor.
[2019-05-30] MEDS: CARVEDILOL 12.5 MG TAB PO SCH (20:12)
[2019-05-31] VITALS: BP 116/56
--- NOTE | 2019-05-31 02:50 | NUR ---
Patient resting in bed. Informed patient that his nurse now is Pedro and not Beba. Patient understood and stated he feels fine. Slow continuous irrigation on buchanan catheter. Urine is clear yellow at this time.
--- NOTE | 2019-05-31 02:55 | NUR ---
Gave report to Pedro MARCIAL. Patient resting in bed, no s/s of distress at this time. All safety measures in place.
[2019-05-31 04:00] VITALS: BP 118/58
[2019-05-31 06:36] LABS: BASOPHILS # (AUTO) 0.1 (0.0-0.1); BASOPHILS % 1.3 % (0.0-1.0); EOSINOPHILS # (AUTO) 0.4 (0.0-0.4); EOSINOPHILS % 6.6 % (0.0-6.0); HEMATOCRIT 28.5 % (38.2-49.6); HEMOGLOBIN 9.3 g/dL (14.0-18.0); LYMPHOCYTES # (AUTO) 1.6 (1.0-3.2); LYMPHOCYTES % 24.4 % (18.0-39.1); MEAN CORPUSCULAR HEMOGLOBIN 30.2 pg (28-32); MEAN CORPUSCULAR HGB CONC 32.6 g/dL (31-35); MEAN CORPUSCULAR VOLUME 92.5 fL (81-99); MONOCYTES # (AUTO) 0.7 (0.2-0.8); MONOCYTES % 10.4 % (4.4-11.3); NEUTROPHILS # (AUTO) 3.6 (2.1-6.9); NEUTROPHILS % 56.4 % (38.7-80.0); PLATELET COUNT 286 x10e3/uL (140-360); RED BLOOD COUNT 3.08 x10e6/uL (4.3-5.7); RED CELL DISTRIBUTION WIDTH 14.9 % (11.7-14.4)
[2019-05-31] MEDS: PANTOPRAZOLE SOD 40 MG TABEC PO SCH (07:30)
[2019-05-31 07:35] VITALS: BP 122/59
--- NOTE | 2019-05-31 07:35 | NUR ---
PT UP IN RECLINER ,DENIES PAIN,JOSUE TO BSD,CLEAR YELLOW URINE
[2019-05-31 07:53] VITALS: BP 122/59
[2019-05-31] MEDS: LORATADINE 10 MG TAB PO SCH (09:00)
[2019-05-31] MEDS: PRAVASTATIN 20 MG TAB PO SCH (09:00)
[2019-05-31] MEDS: AMLODIPINE BESYLATE 5 MG TAB PO SCH (09:00)
[2019-05-31] MEDS: CLOPIDOGREL BISULFATE 75 MG TAB PO SCH (09:00)
[2019-05-31] MEDS: MEROPENEM 500MG/ NS 50ML 50 ML IV SCH (09:00)
[2019-05-31] MEDS: (Methenamine Hippurate 1 GM) PO SCH (09:00)
[2019-05-31] MEDS: FAMOTIDINE 20 MG TAB PO SCH (09:00)
[2019-05-31 12:02] VITALS: BP 147/69
[2019-05-31] MEDS ORDERED: MACROBID 100 M100 MG PO (14:05)
--- NOTE | 2019-05-31 15:00 | NUR ---
PT DISCHARGED HOME,IV DCD WITHOUT EDNESSOR SWELLING,PRESCRIPTIONS AND INSTRUCTIONS GIVEN COPY ON CHART.TRANSPORTED TO AUTO VIA W/C
== END 2019-05-31 14:48 | disposition home or self-care (01) | DRG 696 ==
LOC: ER 12:39 → ERHOLD 15:10 → MED/SURG3 22:09
PROVIDERS: ADMIT Internal Medicine; ATTEND Internal Medicine
PROC: 30233N1 Transfusion of Nonautologous Red Blood Cells into Peripheral Vein, Percutaneous Approach (ICD-10-PCS; 2019-05-27)
PROC: 5A1D70Z Performance of Urinary Filtration, Intermittent, Less than 6 Hours Per Day (ICD-10-PCS; principal; 2019-05-29)
DX: R31.0 Gross hematuria (principal); D62 Acute posthemorrhagic anemia; C64.1 Malignant neoplasm of right kidney, except renal pelvis; I12.0 Hypertensive chronic kidney disease with stage 5 chronic kidney disease or end stage renal disease; N18.6 End stage renal disease; N39.0 Urinary tract infection, site not specified; Z99.2 Dependence on renal dialysis; I25.10 Atherosclerotic heart disease of native coronary artery without angina pectoris; I73.9 Peripheral vascular disease, unspecified; E78.5 Hyperlipidemia, unspecified; N17.9 Acute kidney failure, unspecified; Z96.0 Presence of urogenital implants; Z95.5 Presence of coronary angioplasty implant and graft; Z90.5 Acquired absence of kidney; D63.8 Anemia in other chronic diseases classified elsewhere; N40.0 Benign prostatic hyperplasia without lower urinary tract symptoms
CPT/HCPCS: 36415; 71045; 74176; 80048; 80053; 81001; 82550; 82553; 83735; 83880; 84100; 84484; 85025; 85610; 85730; 86706; 86850; 86900; 86920; 87086; 87186; 93005; 99284; J7030; J7050; P9016; Q4081

== ENCOUNTER 2019-07-31 17:27 | Inpatient (IN) | payer MEDICARE ==
[~2019-07-31] VITALS: Ht 182.9 cm; Wt 81.6 kg
[~2019-07-31 17:27] MED LIST changes: +MACROBID 100 M100 MG PO
[2019-07-31 18:31] LABS: BASOPHILS # (AUTO) 0.1 (0.0-0.1); EOSINOPHILS # (AUTO) 0.2 (0.0-0.4); EOSINOPHILS % 2.8 % (0.0-6.0); HEMATOCRIT 35.5 % (38.2-49.6); HEMOGLOBIN 11.1 g/dL (14.0-18.0); LYMPHOCYTES # (AUTO) 1.8 (1.0-3.2); LYMPHOCYTES % 22.4 % (18.0-39.1); MEAN CORPUSCULAR HEMOGLOBIN 25.9 pg (28-32); MEAN CORPUSCULAR HGB CONC 31.3 g/dL (31-35); MEAN CORPUSCULAR VOLUME 82.9 fL (81-99); MONOCYTES # (AUTO) 0.5 (0.2-0.8); MONOCYTES % 6.3 % (4.4-11.3); NEUTROPHILS # (AUTO) 5.5 (2.1-6.9); NEUTROPHILS % 67.1 % (38.7-80.0); PLATELET COUNT 274 x10e3/uL (140-360); RED BLOOD COUNT 4.28 x10e6/uL (4.3-5.7)
[2019-07-31 18:50] LABS: ALBUMIN 3.4 g/dL (3.5-5.0); ANION GAP 17.1 mmol/L (8-16); CALCIUM 8.5 mg/dL (8.4-10.2); CREATININE, SERUM 8.31 mg/dL (0.72-1.25); POTASSIUM 4.1 mmol/L (3.5-5.1)
[2019-07-31 18:57] LABS: CREATINE KINASE MB 2.3 ng/mL (0-5.0)
--- NOTE | 2019-07-31 19:08 | Diagnostic Imaging Report ---
EXAMINATION: CHEST 2 VIEWS INDICATION: ^ORDER PLACED BY ^[id number] ^[id number] ^Y COMPARISON: 05/26/2019 FINDINGS: PA and lateral views TUBES and LINES: Dual-lead right chest wall cardiac device in place with distal leads projecting over right atrium and right ventricle. LUNGS: Lungs are well inflated. Bilateral airspace opacities. PLEURA: No pneumothorax. Small bilateral pleural effusions. HEART AND MEDIASTINUM: The cardiomediastinal silhouette is unremarkable. BONES AND SOFT TISSUES: No acute osseous lesion. Soft tissues are unremarkable. UPPER ABDOMEN: No free air under the diaphragm. IMPRESSION: Bilateral airspace opacities, representing mild to moderate edema and/or pneumonia. Small bilateral pleural effusions. Signed by: Dr. Felipe Nelson MD on 07/31/2019 7:05 PM
[2019-07-31] MEDS ORDERED: ONDANSETRON HCL INJ 2MG/ML 2ML 2 MG/ML VIAL IV PRN (21:30)
[2019-07-31] MEDS ORDERED: ASPIRIN 81 MG CHEW TAB PO ONE (21:45)
[2019-07-31] MEDS: FUROSEMIDE INJ 10 MG/ML 4 ML VIAL IV SCH (21:48)
[2019-08-01] VITALS (9 sets, daily range): BP systolic 114–154; BP diastolic 64–79
[2019-08-01] MEDS ORDERED: NEXIUM40 MG PO (02:47)
[2019-08-01] MEDS ORDERED: PEPCID40 MG PO (02:47)
--- NOTE | 2019-08-01 05:53 | NUR ---
CARDIAC MARKERS DRAWN AT 0245 STILL PENDING AT THIS TIME.
--- NOTE | 2019-08-01 06:48 | NUR ---
DR. OLEA DOING ROUNDS. NEW ORDER RCV FOR ECHO AND TO CONTINUE HOME MEDS EXCEPT PLAVIX. MD ALSO SAID TO CONSULT DR. HUMPHRIES AND CLARIFY PLAVIX WITH HIM.
--- NOTE | 2019-08-01 07:11 | NUR ---
PAGED DR. HUMPHRIES AT THIS TIME REGARDING CONSULT AND REGARDING HOME MED PLAVIX. AWAITING CALL BACK
--- NOTE | 2019-08-01 07:13 | NUR ---
REPORT GIVEN TO MARY MARCIAL.
--- NOTE | 2019-08-01 07:53 | NUR ---
Patient a/ox3, no resp distress, OOB to chair, some mild SOB, call light within reach, will monitor.
[2019-08-01] MEDS: NON-FORMULARY MEDICATION (Methenamine Hippurate 1 GM) PO SCH (08:42)
[2019-08-01] MEDS: AMLODIPINE BESYLATE 5 MG TAB PO SCH (08:42)
[2019-08-01] MEDS: FUROSEMIDE INJ 10 MG/ML 4 ML VIAL IV SCH ×2 (08:42→20:50)
[2019-08-01] MEDS: FAMOTIDINE 20 MG TAB PO SCH (08:43)
[2019-08-01] MEDS: LORATADINE 10 MG TAB PO SCH (08:49)
[2019-08-01] MEDS: DOCUSATE SODIUM 100 MG CAP PO SCH (08:49)
[2019-08-01] MEDS ORDERED: NON-FORMULARY MEDICATION (Pravastatin Sodium 40 MG) PO SCH (09:00)
[2019-08-01] MEDS ORDERED: NON-FORMULARY MEDICATION (Levocetirizine Dihydrochloride 5 MG) PO SCH (09:00)
[2019-08-01] MEDS ORDERED: NON-FORMULARY MEDICATION (Famotidine (Pepcid) 40 MG) PO SCH (09:00)
--- NOTE | 2019-08-01 09:37 | NUR ---
Rounds by Dr. Franklin and orders for dialysis stat, Dialysis center notified at this time.
--- NOTE | 2019-08-01 10:30 | NUR ---
Patient alert and responsive, started hemodialysis at this time, tolerating well.
[2019-08-01 10:42] LABS: CREATINE KINASE 38 IU/L (30-200)
--- NOTE | 2019-08-01 13:31 | History and Physical ---
CHIEF COMPLAINT: The patient is a 74-year-old male, who comes with shortness of breath. HISTORY OF PRESENT ILLNESS: Mr. Squires with a history of end-stage renal disease, on dialysis two days a week, urinary retention, history of hydronephrosis, history of renal cancer, was in usual state of health until about a week ago. The patient was started out with some discomfort in the chest and also with shortness of breath. The patient went to his primary care physician and with shortness of breath getting worse, was sent to the emergency room and was found to be in volume overload. The patient was admitted for the same, IV Lasix given. PAST MEDICAL HISTORY: 1. End-stage renal disease on dialysis. The patient gets dialysis on Saturday and Saturday. 2. History of hyperlipidemia. 3. History of coronary artery disease, recent stent placement in April and the patient is currently on anticoagulation of Plavix. 4. The patient also has a history of renal cancer, nephrectomy for the same. PAST SURGICAL HISTORY: Stent placement recently. Positive surgery with Dr. Arroyo and nephrectomy about 2 years ago. FAMILY HISTORY: Noncontributory. SOCIAL HISTORY: No EtOH. No IV drug abuse. Does not smoke. MEDICATIONS: The patient takes are acetaminophen with codeine q.4 hours as needed, amlodipine 5 mg daily, carvedilol 12.5 mg at nighttime, clopidogrel 75 mg, omeprazole 40 mg, famotidine 40 mg, pravastatin 40 mg, and methenamine hippurate 1 g tablet. REVIEW OF SYSTEMS: Positive for chest pain. Positive for some shortness of breath. Positive for orthopnea. Positive for PND. No constipation. No rectal bleeding. No hematochezia. No hematuria at this time. PHYSICAL EXAMINATION: VITAL SIGNS: Temperature is 96.6, pulse of 63, respirations of 19, blood pressure is 121/73, and pulse oximetry of 95%. HEENT: Normocephalic, atraumatic. Pupils are reactive. CVS: S1 and S2 normal. Regular rhythm. LUNGS: Positive for crackles in lower bases. ABDOMEN: Nontender, nondistended. EXTREMITIES: No clubbing, no cyanosis, trace edema present. LABORATORY VALUES: White count is 8.23, hemoglobin of 11.1, hematocrit of 35.5. Chemistry shows sodium of 134, potassium 4.1, BUN of 53, creatinine of 8.31, potassium is 4.1. BNP is 541. The patient's troponins first set was negative. Second set is pending. IMAGING STUDIES: Chest x-ray shows bilateral airspace opacities representing [id number] edema and/or pneumonia, small bilateral pleural effusions. ASSESSMENT: Mr. Squires is a 74-year-old male with: 1. End-stage renal disease. 2. Volume overload. 3. Heart failure. 4. History of coronary artery disease. 5. History of hypertension. 6. History of renal cancer status post nephrectomy. PLAN: We will restart all his medication. The patient at this time is getting 40 mg q.12 hours. Renal consult with Dr. Rothman or Dr. Salcedo was done. Consult with Dr. Waldron and/or Dr. Walters will be done for cardiac purposes. Echocardiogram will be ordered. Medicines will be restarted. The patient recently had a stent in April, so Plavix is needed. Hematuria, we will get Cardiology advice and Urology advice. Further recommendations per clinical course. MD FRANSISCO Cotter/MODL /[id number]
--- NOTE | 2019-08-01 15:52 | NUR ---
Completed Hemodialysis at this time and 1.5L extracted, patient appears stable though was cramping per HD nurse.
--- NOTE | 2019-08-01 17:12 | Consultation ---
DATE OF CONSULTATION: 08/01/2019 Cardiology Consultation HISTORY OF PRESENT ILLNESS: Mr. Squires continues to have increasing shortness of breath. PHYSICAL EXAMINATION: VITAL SIGNS: Afebrile, heart rate 63, blood pressure 150/72, and O2 saturation is 97%. CARDIOVASCULAR: Regular rhythm. S4 gallop. LUNGS: Clear. Decreased breath sounds bilaterally. Occasional rhonchi. LABORATORY DATA: Hemoglobin is 11. Serum creatinine 8.3. BNP 540. Echocardiogram was performed and reviewed. Ejection fraction is 45%. ASSESSMENT: 1. Coronary artery disease, status post left main stent placement. 2. Acute systolic heart failure. RECOMMENDATIONS: Continue diuresis with aggressive hemodialysis. Current cardiac medications reviewed and are appropriate. Dual antiplatelet therapy should be continued. I will re-initiate his clopidogrel. We will follow closely. I thank, Dr. Doss, for this consultation. MD PAPITO Kyle/MARGARET /[id number]
--- NOTE | 2019-08-01 19:33 | NUR ---
DR. ANJALI THORNTON DOING ROUNDS. INSERTED JOSUE 24F AND STARTED CBI.
--- NOTE | 2019-08-01 19:40 | NUR ---
DR. THORNTON ORDERED TO HOLD PLAVIX AND ASPIRIN UNTIL URINE IS CLEAR.
[2019-08-01] MEDS: ACETAMINOPHEN/CODEINE 300MG - 30MG TAB PO PRN (19:48)
[2019-08-01 20:00] LABS: CREATINE KINASE MB 2.4 ng/mL (0-5.0)
[2019-08-01 20:04] LABS: CREATINE KINASE MB 1.6 ng/mL (0-5.0)
[2019-08-01] MEDS: CARVEDILOL 12.5 MG TAB PO SCH (20:50)
[2019-08-01] MEDS: ATORVASTATIN 40 MG TAB PO SCH (20:57)
[2019-08-01] MEDS: PANTOPRAZOLE SOD 40 MG TABEC PO SCH (20:58)
[2019-08-01] MEDS ORDERED: ATORVASTATIN 20 MG TAB PO SCH (21:00)
[2019-08-01] MEDS ORDERED: PRAVASTATIN 20 MG TAB PO SCH (21:00)
[2019-08-02] MEDS: ACETAMINOPHEN/CODEINE 300MG - 30MG TAB PO PRN (00:32)
[2019-08-02 04:00] VITALS: BP 101/56
[2019-08-02 06:17] LABS: BASOPHILS # (AUTO) 0.1 (0.0-0.1); BASOPHILS % 1.3 % (0.0-1.0); EOSINOPHILS # (AUTO) 0.3 (0.0-0.4); HEMATOCRIT 33.3 % (38.2-49.6); HEMOGLOBIN 10.3 g/dL (14.0-18.0); LYMPHOCYTES # (AUTO) 1.8 (1.0-3.2); LYMPHOCYTES % 25.7 % (18.0-39.1); MEAN CORPUSCULAR HEMOGLOBIN 25.8 pg (28-32); MEAN CORPUSCULAR HGB CONC 30.9 g/dL (31-35); MEAN CORPUSCULAR VOLUME 83.5 fL (81-99); MONOCYTES # (AUTO) 0.7 (0.2-0.8); MONOCYTES % 9.6 % (4.4-11.3); PLATELET COUNT 234 x10e3/uL (140-360); RED BLOOD COUNT 3.99 x10e6/uL (4.3-5.7); RED CELL DISTRIBUTION WIDTH 15.2 % (11.7-14.4)
[2019-08-02 06:46] LABS: ANION GAP 15.7 mmol/L (8-16); POTASSIUM 3.7 mmol/L (3.5-5.1)
--- NOTE | 2019-08-02 07:05 | NUR ---
DR. OLEA DOING ROUNDS. NEW ORDER RECEIVED FOR GABAPENTIN 100MG PO BID.
[2019-08-02 08:10] VITALS: BP 112/75
[2019-08-02 08:24] VITALS: BP 112/75
[2019-08-02] MEDS: FUROSEMIDE INJ 10 MG/ML 4 ML VIAL IV SCH ×2 (08:38→20:27)
[2019-08-02] MEDS: NON-FORMULARY MEDICATION (Methenamine Hippurate 1 GM) PO SCH (08:39)
[2019-08-02] MEDS: GABAPENTIN 100 MG CAP PO SCH ×2 (08:39→16:46)
[2019-08-02] MEDS: FAMOTIDINE 20 MG TAB PO SCH (08:39)
[2019-08-02] MEDS: DOCUSATE SODIUM 100 MG CAP PO SCH (08:39)
[2019-08-02] MEDS: AMLODIPINE BESYLATE 5 MG TAB PO SCH (08:39)
[2019-08-02] MEDS ORDERED: ASPIRIN 81 MG CHEW TAB PO SCH (09:00)
[2019-08-02] MEDS ORDERED: PRAVASTATIN 20 MG TAB PO SCH (09:00)
[2019-08-02] MEDS ORDERED: CLOPIDOGREL BISULFATE 75 MG TAB PO SCH (09:00)
[2019-08-02] MEDS ORDERED: ASPIRIN 325 MG TAB PO SCH (09:00)
--- NOTE | 2019-08-02 09:44 | Progress Note ---
DATE: SUBJECTIVE: A 74-year-old male who came with hematuria, urine retention. The patient is having a bladder irrigation at this time. Plavix was continued. The patient is also on pravastatin, carvedilol, and omeprazole. The patient has some cramping of the lower extremities, which is started right about 2 days post dialysis. The patient had dialysis on Saturday. OBJECTIVE: VITAL SIGNS: Temperature is 95.5, pulse of 60, respirations of 17, blood pressure is 101/56, pulse oximetry of 97% on room air. HEENT: Normocephalic and atraumatic. Pupils are reactive to light and accommodation. CVS: S1 and S2. Regular. Also have some ejection systolic murmur. ABDOMEN: Nontender and nondistended. EXTREMITIES: No clubbing, no cyanosis, no edema. The patient has a Walker catheter with ongoing irrigation. ASSESSMENT: 1. Hematuria, urinary retention. The patient has been irrigated and continues to be clear. Plavix will be continued in lieu of his coronary artery disease status post stent in April. Urine cultures are pending. 2. Heart failure. Continue CV medications. 3. Coronary artery disease. Continue CV medications. 4. Further recommendation and clinical course. The patient also has end-stage renal disease, which he gets dialysis twice a week. Dr. Salcedo is on consult. We will continue to monitor the patient. MD KASANDRA CotterJ/MODL /[id number]
[2019-08-02] MEDS: LORATADINE 10 MG TAB PO SCH (11:31)
[2019-08-02 12:16] VITALS: BP 140/78
[2019-08-02 15:50] VITALS: BP 144/74
--- NOTE | 2019-08-02 19:07 | NUR ---
Report given to oncoming nurse of patient's status. Sitting on chair. No s/s of acute distress noted. On CBI. call light within reach.
--- NOTE | 2019-08-02 19:25 | Diagnostic Imaging Report ---
EXAMINATION: PA and lateral views of the chest. COMPARISON: July 31, 2019 CLINICAL HISTORY: Follow-up DISCUSSION: Lines/tubes: Dual-lead pacemaker. Lungs: Pulmonary venous congestion with decreased edema. Pleura: There is no pleural effusion or pneumothorax. Heart and mediastinum: The cardiomediastinal silhouette is normal. Bones and soft tissues: No acute bony abnormalities. IMPRESSION: Pulmonary venous congestion with decreased interstitial edema Signed by: Dr. Octaviano Lopez M.D. on 08/02/2019 7:22 PM
[2019-08-02 20:00] VITALS: BP 126/60
[2019-08-02] MEDS: ATORVASTATIN 40 MG TAB PO SCH (20:27)
[2019-08-02] MEDS: PANTOPRAZOLE SOD 40 MG TABEC PO SCH (20:27)
[2019-08-02] MEDS: CARVEDILOL 12.5 MG TAB PO SCH (20:27)
--- NOTE | 2019-08-02 22:17 | Consultation ---
DATE OF CONSULTATION: 08/01/2019 The patient was seen and examined on 08/01/2019, at 09:18 a.m. This is a late dictation. HISTORY OF PRESENT ILLNESS: The patient is a pleasant 74-year-old male with past medical historyof ESRD, on hemodialysis Mondays and Fridays, coronary artery disease status post multiple stents, on Plavix, history of hematuria, history of renal cell cancer status post nephrectomy, hyperlipidemia, was admitted with worsening shortness of breath. Chest x-ray showed bilateral edema. The patient to get dialysis today. The patient also complains of hematuria that started 2 days ago. PAST MEDICAL HISTORY: As above. PAST SURGICAL HISTORY: Coronary artery stent placement, nephrectomy, and ureteral stent by Dr. Arroyo. FAMILY HISTORY: No history of any kidney disease. SOCIAL HISTORY: No history of tobacco, alcohol, or intravenous drug abuse. MEDICATIONS: As per MAR. REVIEW OF SYSTEMS: Pertinent positives ones as per HPI. PHYSICAL EXAMINATION: VITAL SIGNS: Blood pressure 114/71, pulse of 61, respirations 18, temperature 97.0, 94% room air. GENERAL: Awake, alert, and oriented x3, not in apparent distress. HEENT: PERRLA. Extraocular muscles are intact. NECK: No JVD. HEART: S1, S2. LUNGS: Bilateral basilar crackles. ABDOMEN: Soft. Bowel sounds positive. EXTREMITIES: No edema. NEUROLOGICAL: No focal deficits. SKIN: No new rash. LABORATORY DATA: Sodium 134, potassium 4.1, chloride 100, CO2 21, BUN 53, creatinine 8.3, glucose 129, white count 8.2, hemoglobin 11, platelet count is 274. AST 13, ALT 7, alkaline phosphatase 90, total bilirubin 0.4. Chest x-ray bilateral airspace opacity, ildb-ho-rxkkrxpn edema, and small bilateral pleural effusions. ASSESSMENT AND PLAN: 1. End stage renal disease with volume overload. We will do dialysis today with 2-3 L ultrafiltration as the blood pressure tolerates. The patient cramps easily as outpatient and goes only 2 days of dialysis and he refuses to go 3 days for dialysis. It is difficult to remove fluid and challenge him as an outpatient. The patient understands and today wants to be challenged as his breathing is worse. 2. Pulmonary edema ultrafiltration with dialysis today. P.o. fluid restriction 1.2 L per day and low-salt diet. 3. Coronary artery disease, status post stent. Dr. Rueda consulted. 4. Anemia of chronic kidney disease, start YVONNE if hemoglobin less than 11. 5. Hematuria with history of nephrectomy and ureteral stent. Dr. Arroyo consulted. Thank you Dr. Doss for the consult. MD IJEOMA Marmolejo/MODL /[id number]
[2019-08-03] VITALS (9 sets, daily range): BP systolic 110–154; BP diastolic 59–74
[2019-08-03 06:17] LABS: BASOPHILS # (AUTO) 0.1 (0.0-0.1); BASOPHILS % 1.2 % (0.0-1.0); EOSINOPHILS # (AUTO) 0.3 (0.0-0.4); HEMATOCRIT 32.2 % (38.2-49.6); HEMOGLOBIN 10.2 g/dL (14.0-18.0); LYMPHOCYTES # (AUTO) 1.8 (1.0-3.2); LYMPHOCYTES % 23.2 % (18.0-39.1); MEAN CORPUSCULAR HEMOGLOBIN 26.3 pg (28-32); MEAN CORPUSCULAR HGB CONC 31.7 g/dL (31-35); MONOCYTES # (AUTO) 0.7 (0.2-0.8); MONOCYTES % 8.7 % (4.4-11.3); NEUTROPHILS # (AUTO) 4.8 (2.1-6.9); NEUTROPHILS % 62.5 % (38.7-80.0); PLATELET COUNT 244 x10e3/uL (140-360); RED BLOOD COUNT 3.88 x10e6/uL (4.3-5.7); RED CELL DISTRIBUTION WIDTH 15.4 % (11.7-14.4)
[2019-08-03 06:32] LABS: ANION GAP 15.9 mmol/L (8-16); CREATININE, SERUM 6.94 mg/dL (0.72-1.25); POTASSIUM 3.9 mmol/L (3.5-5.1)
--- NOTE | 2019-08-03 07:19 | NUR ---
REPORT GIVEN TO DELIA MARCIAL
[2019-08-03] MEDS: NON-FORMULARY MEDICATION (Methenamine Hippurate 1 GM) PO SCH (09:00)
--- NOTE | 2019-08-03 09:04 | Progress Note ---
DATE: SUBJECTIVE: The patient came in with hematuria, history of end-stage renal disease and history of volume overload. Today is dialysis day and currently, does not have any cramping with the gabapentin. Feels much better. OBJECTIVE: VITAL SIGNS: Temperature is 97.2, afebrile for the last 48 hours, respirations of 18, blood pressure is 112/70, pulse oximetry 97%. HEENT: Normocephalic. CVS: S1-S2 are normal, regular rate and rhythm. ABDOMEN: Nontender and nondistended. EXTREMITIES: No clubbing, no cyanosis, no edema. Walker to gravity with continuous irrigation of looking better. Hematuria is decreased considerably. LABORATORY VALUES: Hemoglobin of 10.2, hematocrit of 32.2 holding. BUN of 39 and creatinine of 6.94. Troponin has to be trended to be negative. ASSESSMENT: Mr. Lior Squires is a 74-year-old male with: 1. Hematuria and urinary retention, continue with irrigation. The patient's Plavix and aspirin has been on hold. 2. Heart failure, continue CV medications, needs dialysis today. 3. Coronary artery disease, continue with medication. Further recommendation per clinical course. Planning discharge possibly tomorrow and restart Plavix and aspirin. MD FRANSISCO Cotter/TEJASL /[id number]
[2019-08-03] MEDS ORDERED: ONDANSETRON HCL 4 MG ORAL DISINTEGRATING TAB PO PRN (10:00)
[2019-08-03] MEDS: AMLODIPINE BESYLATE 5 MG TAB PO SCH (10:06)
[2019-08-03] MEDS: FAMOTIDINE 20 MG TAB PO SCH (10:07)
[2019-08-03] MEDS: LORATADINE 10 MG TAB PO SCH (10:07)
[2019-08-03] MEDS: GABAPENTIN 100 MG CAP PO SCH ×2 (10:07→17:44)
[2019-08-03] MEDS: DOCUSATE SODIUM 100 MG CAP PO SCH (10:07)
[2019-08-03] MEDS: FUROSEMIDE INJ 10 MG/ML 4 ML VIAL IV SCH ×2 (10:08→21:03)
--- NOTE | 2019-08-03 11:21 | NUR ---
Called [facility] for Dr. Rueda or whoever is technical operations vice president for him, spoke to Nancy, she statedthat she would check and page them for orders regarding Aspirin and Plavix.
--- NOTE | 2019-08-03 12:26 | NUR ---
Spoke to Dr. Erazo regarding restarting Plavix and Aspirin, Dr. Erazo stated that aspirin and Plavix and can restarted as soon as urology is okay with it.
--- NOTE | 2019-08-03 14:26 | NUR ---
Called Dr. Arroyo's office to request if okay to restart Plavix and aspirin, hospital receptionist stated that she would let the doctor know.
--- NOTE | 2019-08-03 14:31 | NUR ---
Spoke to Dillon Awan regarding restarting Plavix and aspirin through OR, Dr Arroyo stated no, it is not okay.
[2019-08-03] MEDS ORDERED: EPOETIN ALFA 10000 UNIT/ML VIAL SC SCH (16:00)
--- NOTE | 2019-08-03 19:00 | NUR ---
RECEIVED PATIENT IN BEDSIDE SHIFT REPORT. PATIENT SITTING IN CHAIR AT BEDSIDE. NO PAIN REPORTED. NO S&S OF DISTRESS NOTED. CBI RUNNING, CLEAR, PALE YELLOW URINE DRAINING. BED LOCKED IN LOWEST POSITION, SIDE RAILS UPX2, CALL LIGHT IN REACH.
[2019-08-03] MEDS: PANTOPRAZOLE SOD 40 MG TABEC PO SCH (21:00)
[2019-08-03] MEDS: PRAVASTATIN 20 MG TAB PO SCH (21:00)
[2019-08-03] MEDS: CARVEDILOL 12.5 MG TAB PO SCH (21:03)
[2019-08-03] MEDS: ATORVASTATIN 40 MG TAB PO SCH (21:03)
[2019-08-04] VITALS (7 sets, daily range): BP systolic 102–133; BP diastolic 51–69
--- NOTE | 2019-08-04 02:37 | NUR ---
SPOKE TO NURSE AT [facility] CONCERNING ORDER FOR HD TODAY, AFTER 0800.
[2019-08-04] MEDS: NON-FORMULARY MEDICATION (Methenamine Hippurate 1 GM) PO SCH (07:52)
--- NOTE | 2019-08-04 10:04 | Progress Note ---
DATE: SUBJECTIVE: The patient is here for hematuria and is getting continues bladder irrigation. No complaints from the patient except for leaking of the Walker catheter in site and questionable pussy discharge. Back pain and leg pain had dissipated. The patient was supposed to get dialysis yesterday. The dialysis team could not get to the patient yesterday. We will have dialysis today. OBJECTIVE: VITAL SIGNS: Temperature is afebrile 97.3, respirations 16, pulse of 71, and blood pressure 104/57. HEENT: Normocephalic, atraumatic. Pupils are reactive. CVS: S1 and S2 normal. Regular rate and rhythm. ABDOMEN: Nontender, nondistended. EXTREMITIES: No clubbing, no cyanosis, no edema. LABORATORY VALUES: None done. The labs have been trending normal. Chemistries; BUN and creatinine 39 and 6.94. Microbiology urine culture no growth. ASSESSMENT: Mr. Squires with, 1. Hematuria and urinary retention. Continue with irrigation. The patient's Plavix and aspirin has been on hold. 2. Heart failure. Continue CV medication. 3. Coronary artery disease. Continue on medication. PLAN: Discharge planning depending on Dr. Arroyo's advise. Further recommendation per clinical course and dialysis study for his end-stage renal disease. MD FRANSISCO Cotter/MODL /[id number]
[2019-08-04] MEDS: LORATADINE 10 MG TAB PO SCH (14:31)
[2019-08-04] MEDS: FAMOTIDINE 20 MG TAB PO SCH (14:31)
[2019-08-04] MEDS: GABAPENTIN 100 MG CAP PO SCH ×2 (14:31→18:03)
[2019-08-04] MEDS: DOCUSATE SODIUM 100 MG CAP PO SCH (14:32)
[2019-08-04] MEDS: FUROSEMIDE INJ 10 MG/ML 4 ML VIAL IV SCH ×2 (14:34→20:53)
[2019-08-04] MEDS: AMLODIPINE BESYLATE 5 MG TAB PO SCH (14:34)
--- NOTE | 2019-08-04 19:00 | NUR ---
RECEIVED PATIENT IN BEDSIDE SHIFT REPORT. NO PAIN REPORTED. NO S&S OF DISTRESS NOTED. JOSUE DRAINING TO GRAVITY, CBI RUNNING, CLEAR, PALE YELLOW URINE NOTED. BED LOCKED IN LOWEST POSITION, SIDE RAILS UPX2, CALL LIGHT IN REACH.
--- NOTE | 2019-08-04 19:27 | Progress Note ---
DATE: SUBJECTIVE: The patient is feeling better. Denies any chest pain or shortness of breath. Hematuria is improved. OBJECTIVE: VITAL SIGNS: Temperature is 96.9, heart rate 63, respirations are 18, blood pressure is 133/69, oxygen saturation 99% on room air. GENERAL: Well appearing, no apparent distress. Alert and oriented x3. CARDIOVASCULAR: Regular rate and rhythm. LUNGS: Clear to auscultation. ABDOMEN: Soft, nontender, and nondistended. EXTREMITIES: No edema. CARDIOVASCULAR MEDICATIONS: Reviewed. LABORATORY DATA: Reviewed, hemoglobin 10.2. IMPRESSION: 1. Hematuria. 2. Coronary artery disease. 3. Congestive heart failure. 4. End-stage renal disease. RECOMMENDATIONS: Continue current cardiovascular medications. Resume aspirin and Plavix when okay with Urology. We will continue to follow along with you. DO JAZMIN Cabello/MODL /[id number]
--- NOTE | 2019-08-04 20:48 | NUR ---
CONSENT FOR CYSTOSCOPY SIGNED AT THIS TIME.
[2019-08-04] MEDS: PRAVASTATIN 20 MG TAB PO SCH (20:53)
[2019-08-04] MEDS: ATORVASTATIN 40 MG TAB PO SCH (20:53)
[2019-08-04] MEDS: PANTOPRAZOLE SOD 40 MG TABEC PO SCH (20:53)
[2019-08-04] MEDS: CARVEDILOL 12.5 MG TAB PO SCH (21:00)
[2019-08-05] VITALS: BP_SYST 130; BP_SYST 131; BP_DIAS 65; BP_DIAS 71
[2019-08-05 04:00] VITALS: BP 113/67
--- NOTE | 2019-08-05 07:15 | NUR ---
Received patient lying in bed with eyes open. Respiration even and unlabored without SOB. Call light in reach.
[2019-08-05 07:39] VITALS: BP 119/73
[2019-08-05] MEDS ORDERED: IOPAMIDOL 300MG/ML 50ML INFUS..BTL IV ONE (08:40)
[2019-08-05] MEDS ORDERED: B&O 60MG R/S 60 MG SUPP PR ONE (08:40)
--- NOTE | 2019-08-05 08:43 | NUR ---
Patient is transported for surgery at this time.
--- NOTE | 2019-08-05 08:49 | Progress Note ---
DATE: SUBJECTIVE: A 74-year-old male with history of nephrectomy, history of hematuria, history of CAD with recent stent, comes in. Currently, the patient is better, is kept n.p.o. for switch of stent. No complaints from the patient. Feeling better, ready to go home. OBJECTIVE: VITAL SIGNS: Temperature is 96, pulse is 62, blood pressure is 131/71, pulse oximetry of 96% on 1 L of oxygen. HEENT: Normocephalic and atraumatic. Pupils are reactive. CVS: S1 and S2 normal. Regular rate and rhythm. ABDOMEN: Nontender, nondistended. LUNGS: Clear to auscultation. Positive for crackles at the lung bases. Ejection systolic murmur. EXTREMITIES: No edema. LABORATORY DATA: None done today. The patient had dialysis yesterday. BUN yesterday was 39, creatinine of 6.94. Troponins have been trended to be negative. ASSESSMENT: A 74-year-old gentleman with: 1. Hematuria, urinary retention. Stop the irrigation. The patient is switch out of stent to Dr. Arroyo today. 2. Heart failure. Continue CV medication. 3. Coronary artery disease. Continue with medication. 4. End-stage renal disease. The patient is on dialysis on a regimen. Further recommendations per clinical course. We will continue to monitor the patient, can be discharged today depending on Dr. Arroyo's advise. MD FRANSISCO Cotter/MODL /[id number]
[2019-08-05] MEDS ORDERED: SODIUM CHLORIDE 0.9% 500ML 500 ML ONE (08:57)
[2019-08-05] MEDS: NON-FORMULARY MEDICATION (Methenamine Hippurate 1 GM) PO SCH (09:00)
[2019-08-05] MEDS ORDERED: FUROSEMIDE 40 MG TAB PO SCH (09:00)
[2019-08-05] MEDS: DOCUSATE SODIUM 100 MG CAP PO SCH ×2 (09:00→11:14)
[2019-08-05] MEDS ORDERED: MEROPENEM 500MG/ NS 50ML 50 ML IV ONE (09:45)
[2019-08-05 09:59] VITALS: BP 119/73
--- NOTE | 2019-08-05 10:40 | NUR ---
Patient is back from surgery. Respiration even and unlabored. Indwelling buchanan catheter in placed and on CBI until 12 noon as ordered. Clear, light- colored urine noted. Call light in reach.
[2019-08-05] MEDS: LORATADINE 10 MG TAB PO SCH (11:14)
[2019-08-05] MEDS: FAMOTIDINE 20 MG TAB PO SCH (11:15)
[2019-08-05] MEDS: GABAPENTIN 100 MG CAP PO SCH (11:15)
[2019-08-05] MEDS: AMLODIPINE BESYLATE 5 MG TAB PO SCH (11:15)
[2019-08-05] MEDS: FUROSEMIDE INJ 10 MG/ML 4 ML VIAL IV SCH (11:17)
[2019-08-05 11:50] VITALS: BP 129/74
--- NOTE | 2019-08-05 14:45 | NUR ---
Patient is to discharge home today. PIV to right FA discontinued, catheter intact, no bleeding noted. Leg bag for indwelling catheter in placed. Prescription given. Call light in reach.
[2019-08-05] MEDS ORDERED: ONDANSETRON HCL INJ 2MG/ML 2ML 2 MG/ML VIAL ONE (14:46)
[2019-08-05] MEDS ORDERED: PROPOFOL IV EMULSION 10 MG/ML 20 ML VIAL ONE (14:46)
[2019-08-05] MEDS ORDERED: SEVOFLURANE INHAL SOLN 250 ML PEN BTL ONE (14:46)
[2019-08-05] MEDS ORDERED: LIDOCAINE HCL 2% LOCAL INJ 5 ML SDV VIAL INJ ONE (14:46)
--- NOTE | 2019-08-05 14:50 | NUR ---
Transported patient via wheelchair to private vehicle. All personal belongings are taken by the patient.
--- NOTE | 2019-09-07 03:33 | Operative Report ---
DATE OF PROCEDURE: 08/01/2019 SURGEON: Estiven Arroyo MD PREOPERATIVE DIAGNOSES: 1. Left ureteral stricture. 2. Left hydronephrosis due to stricture. 3. Left indwelling ureteral stent. POSTOPERATIVE DIAGNOSES: 1. Left ureteral stricture. 2. Left hydronephrosis due to stricture. 3. Left indwelling ureteral stent. 4. Bladder diverticula. OPERATION PERFORMED: 1. Cystourethroscopy with complicated removal of left indwelling ureteral stent (separate procedure performed for diagnosis of the stent done with separate scope). 2. Left ureteroscopy with dilation of ureteral stricture (separate procedure performed for the diagnosis of stricture). 3. Radiological Services with supervision and interpretation of stricture dilation. 4. Cystourethroscopy with insertion of left indwelling ureteral stent (separate procedure performed to relieve the hydronephrosis). 5. Interpretation of retrograde ureteropyelography. 6. Supervision of fluoroscopy, no radiologist present. ANESTHESIA: General. COMPLICATIONS: None. CLINICAL SUMMARY: Lior Squires is a very complex 74-year-old man. Please refer to prior dictations and prior hospital charts for details. OPERATIVE PROCEDURE IN DETAIL: Informed consent was verified. Lior Squires was properly identified, taken to the operating room, and placed on the cystoscopy table in supine position. Anesthesia was uneventfully begun. The patient was then carefully and gently repositioned in dorsal lithotomy position with all pressure points well padded. His genitalia were prepared and draped in usual sterile fashion. A 22.5-Polish cystoscope sheath with obturator in place was atraumatically inserted into the patient's urethra, was guided down the unremarkable urethra thus far stricture disease. There was friability of the mucosa, which we believe may be related to the recent catheterizations. We went through the prostate bed, which was significant for being status post transurethral resection of the prostate. There was some residual prostatic tissue that was caving into the prostatic cavity and there was an apparent half way without resistance. We went to the patient's bladder and drained it. Panendoscopy of the bladder revealed grade 4 trabeculations with diffuse diverticula formation. An 8-Polish catheter was used to cannulate the left ureter and retrograde ureteropyelograms were performed. With cystoscopic and fluoroscopic guidance, a left-sided indwelling ureteral stent was then placed. A guidewire was then placed alongside the stent and guided to the level of the patient's kidney and the stent was then grasped, completely removed, and discarded. We were unable to negotiate the proximal portion of the guidewire within the kidney. Therefore, a flexible ureteroscope was then placed over the guidewire and guided to the level where the wire was hanging up. There appeared to be a stricture there. We dilated across the stricture with the flexible ureteroscope, thus dilating it to the size of the ureteroscope. Panendoscopy of the intrarenal collecting system revealed dilated collecting systems with no tumors, no stones, and no suspicious lesions. We carefully removed the ureteroscope, carefully re-examined the ureter, which was wide open and unobstructed. With cystoscopic and fluoroscopic guidance, a left-sided indwelling ureteral stent was then placed. It was coiled in the patient's kidney as well as the patient's bladder, stent was 7-Polish x 24 cm. Interpretation of retrograde ureteropyelography contrast was instilled in retrograde fashion bilaterally. There was left-sided hydroureteronephrosis with ureteral tortuosity. There were no suspicious lesions that could be noted. The cystoscope was withdrawn. Walker catheter was placed. It was irrigated to and fro to ensure it worked properly. Contrast was injected and performed cystography. Interpretation of cystography contrast was instilled in a retrograde fashion via the cystoscope. It revealed a highly irregular bladder. There was Mel tree in shape with diffuse diverticular formation. There was an open prostatic cavity consistent with having a TURP defect corresponding to the prior TURP. The Walker catheter balloon was in the lumen of the bladder. A belladonna and opium suppository were placed revealing a larger than 50 g prostate, that is smooth, non-fluctuant without any nodules. The patient was uneventfully reversed from anesthesia and taken to recovery room in stable condition. There were no complications to the procedure. He tolerated the procedure well. Explicit postop instructions were given and we will plan to follow the patient up in the office. Estiven Arroyo MD [place]/MARGARET /[id number]
== END 2019-08-05 14:50 | disposition home or self-care (01) | DRG 987 ==
LOC: ER 17:27 → ERHOLD 21:19 → MED/SURG 08-01 01:56 → OBSVTOIN 08-01 19:39
PROVIDERS: ADMIT Family Medicine; ATTEND Family Medicine
PROC: 0TP98DZ Removal of Intraluminal Device from Ureter, Via Natural or Artificial Opening Endoscopic (ICD-10-PCS; principal; 2019-08-01)
PROC: 0T778DZ Dilation of Left Ureter with Intraluminal Device, Via Natural or Artificial Opening Endoscopic (ICD-10-PCS; 2019-08-01)
PROC: BT141ZZ Fluoroscopy of Kidneys, Ureters and Bladder using Low Osmolar Contrast (ICD-10-PCS; 2019-08-01)
PROC: 0T7D8ZZ Dilation of Urethra, Via Natural or Artificial Opening Endoscopic (ICD-10-PCS; 2019-08-01)
PROC: 5A1D70Z Performance of Urinary Filtration, Intermittent, Less than 6 Hours Per Day (ICD-10-PCS; 2019-08-01)
DX: I13.2 Hypertensive heart and chronic kidney disease with heart failure and with stage 5 chronic kidney disease, or end stage renal disease (principal); I50.23 Acute on chronic systolic (congestive) heart failure; N18.6 End stage renal disease; N13.1 Hydronephrosis with ureteral stricture, not elsewhere classified; E87.1 Hypo-osmolality and hyponatremia; E11.22 Type 2 diabetes mellitus with diabetic chronic kidney disease; Z99.2 Dependence on renal dialysis; Z79.4 Long term (current) use of insulin; I25.10 Atherosclerotic heart disease of native coronary artery without angina pectoris; Z95.5 Presence of coronary angioplasty implant and graft; Z85.528 Personal history of other malignant neoplasm of kidney; Z90.5 Acquired absence of kidney; R33.9 Retention of urine, unspecified; D63.1 Anemia in chronic kidney disease; N40.0 Benign prostatic hyperplasia without lower urinary tract symptoms; R31.0 Gross hematuria
CPT/HCPCS: 36415; 71046; 74420; 80048; 80053; 82550; 82553; 83880; 84484; 85025; 86677; 86704; 86706; 86707; 87086; 90962; 93005; 93306; 96374; 99284; C1758; C1769; C2617; G0378; J1940; J2001; J2405; J7040; Q4081

== ENCOUNTER 2019-08-28 12:15 | Emergency (ER) | payer MEDICARE ==
[~2019-08-28] VITALS: Ht 182.9 cm; Wt 81.6 kg
[~2019-08-28 12:15] MED LIST changes: +NEXIUM40 MG PO; +PEPCID40 MG PO
[2019-08-28 13:49] VITALS: BP 121/83
== END 2019-08-28 13:58 | disposition home or self-care (01) ==
LOC: ER 12:15
DX: M62.830 Muscle spasm of back (principal); R10.11 Right upper quadrant pain; Z88.1 Allergy status to other antibiotic agents
CPT/HCPCS: 99281